=== PATIENT | male | born 1965 | race Caucasian/White ===

== ENCOUNTER 2024-05-17 20:28 | Inpatient (IN) | payer OTHER, MEDICAID, SELFPAY ==
[2024-05-17] VITALS (11 sets, daily range): BP systolic 101–140; BP diastolic 57–78; PULSE 95–108; RESP 18; TEMP 37.1; O2SAT 96–98; BMI 24.3
[2024-05-17 20:45] LABS: Add Manual Diff / Slide Review NO; Basophils Absolute Auto 0 /uL (0-100); Basophils Percent Auto 0.3 % (0-2); Eosinophils Absolute Auto 0 /uL (0-450); Eosinophils Percent Auto 0.3 % (2-4); Hematocrit 38.7 % (41-53); Hemoglobin 13.2 g/dL (13.5-17.5); Lymphocytes Absolute Auto 500 /uL (1100-4500); Lymphocytes Percent Auto 3.6 % (25-40); Mean Corpuscular Hemoglobin 29.6 PG (26-34); Mean Corpuscular Volume 87.2 fL (80-100); Monocytes Absolute Auto 400 /uL (0-900); Monocytes Percent Auto 3.3 % (3-14); Neutrophils Absolute Auto 12200 /uL (1500-7000); Neutrophils Percent Auto 92.5 % (50-75); Platelet Count 261 X10^3/uL (150-400); Red Blood Cell Count 4.44 X10^6/uL (4.5-5.9); Red Cell Distribution Width 13.3 % (11.6-14.8); White Blood Cell Count 13.2 X10^3/uL (4.5-11.0)
--- NOTE | 2024-05-17 20:46 | EKG_ITS ---
[address] [address] [address], [place] [address] Test Date: 2024-05-17 Pat Name: Myles Segovia Department: Room: Gender: Male Dermatology Nurse: BENJAMÍN : 1965 Requested By: Order Number: [id number] Reading MD: Mohsen Jenkins MD Measurements Intervals Thelma Rate: 98 P: 55 [place]: 142 QRS: 5 QRSD: 124 T: 30 QT: 442 QTc: 564 Interpretive Statements Normal sinus rhythm Right bundle branch block NO PRIOR TRACING Electronically Signed On 05-18-2024 7:53:52 PDT by Mohsen Jenkins MD
[2024-05-17 20:57] LABS: Alanine Aminotransferase 209 IU/L (<50); Albumin 3.5 g/dL (3.5-5.0); Albumin Globulin Ratio 0.8 (1.0-2.8); Alkaline Phosphatase 258 U/L (38-126); Aspartate Aminotransferase 136 IU/L (17-59); BUN Creatinine Ratio 20.8 (6-22); Bilirubin Total 1.4 mg/dL (0.2-1.3); Blood Urea Nitrogen 11 mg/dL (9-20); Calcium 8.3 mg/dL (8.4-10.2); Carbon Dioxide 28 mmol/L (22-32); Chloride 96 mmol/L (98-107); Estimated Glomerular Filt Rate > 60 mL/min (>60); Globulin 4.2 g/dL (1.7-4.1); Glucose 292 mg/dL (70-100); HEMOLYSIS 39 (0-50); Lipase 31 U/L (23-300); Potassium 4.4 mmol/L (3.4-5.1); Sodium 129 mmol/L (137-145); Total Protein 7.7 g/dL (6.3-8.2)
--- NOTE | 2024-05-17 22:32 | ED.ABDPAIN ---
HPI - Abdominal Pain General Chief Complaint: Abdominal Pain Stated Complaint: painful urination Time Seen by Provider: 05/17/24 22:32 Source: patient and RN notes reviewed Mode of arrival: EMS Limitations: no limitations History of Present Illness HPI narrative: 58-year-old male with history of hypertension, dyslipidemia, diabetes, hepatitis, patient states that he presents with complaint of dysuria. Patient describes some pelvic discomfort as well as in the penis. He states this has been going on for several weeks. Became much more painful today to try to urinate. States he was seen somewhere yesterday was given a prescription he thinks for Pyridium and an antibiotic but was not sure which antibiotics were which did not take them because he is sores his medications in a bowl and could not tell them apart. He states he may have had fevers. He has had nausea but no vomiting. Denies any flank pain currently but has had some mild flank pain on and off. States he does have discomfort in his lower belly. Patient states he has been constipated last bowel movement was several days ago. States he is passing flatus. States no discharge. No scrotal pain. States he has been referred to see someone like Urology has not appointment towards the end of the month. He states he has had a catheter once before in the past but not regularly. He does not have any known kidney problems that he is aware, he has had UTIs in the past. Denies any surgeries. Allergy to codeine. Denies tobacco, denies any alcohol use, denies any recreational drugs besides marijuana. Related Data Allergies Allergy/AdvReac Type Severity Reaction Status Date / Time codeine Allergy Verified 05/17/24 20:37 Review of Systems Review of Systems ROS Unobtainable: All systems reviewed & are unremarkable except as noted in HPI and below Patient History Social History Smoking Status: Never smoker Smoking Status: Never smoker Substance Use Type: marijuana Exam Narrative Exam Narrative: GENERAL: Alert and oriented x three, male in mild distress. HEENT: Head normocephalic, atraumatic, EOMI, pupils reactive, face symmetric, moist mucous membranes NECK: Supple, full range of motion CARDIOVASCULAR: Regular rate and rhythm without murmurs, rubs or gallops. RESPIRATORY: Breath sounds equal bilaterally, no wheezes rales or rhonchi. ABDOMEN: Soft, positive for suprapubic tenderness. Normoactive bowel sounds all 4 quadrants. No guarding or rebound, rigidity, no mass : No CVA tenderness. Male: normal external examination, no penile discharge or lesions, testicles non-tender, cremasteric reflex intact, no inguinal hernias noted. EXTREMITIES: Normal range of motion, no clubbing or edema. Neurovascularly intact NEUROLOGICAL: Cranial nerves II through XII grossly intact. Moving all extremities SKIN: Warm, dry, no petechiae, no rashes or lesions. Initial Vital Signs Initial Vital Signs: Vital Signs Pulse Rate 100 H 05/17/24 20:30 Pulse Oximetry 98 05/17/24 20:30 Course Orders Ordered: ED Orders 05/17/24 20:30 Complete Blood Count AUTO DIFF Stat Comprehensive Metabolic Panel Stat Lipase Stat 05/17/24 20:36 EKG-12 Lead Stat 05/17/24 22:58 Chlamydia Gonorrhea PCR -URINE Stat Urine Microscopic Stat 05/18/24 00:51 CT abdomen pelvis w con Stat 05/18/24 01:45 Urine Culture Stat Levofloxacin (Levaquin) 750 mg in 150 mls @ 100 mls/hr IV NOW ONE Stop: 05/18/24 03:14 Last Admin: 05/18/24 01:50 Dose: 100 mls/hr Documented By: Sodium Chloride (Normal Saline 0.9%) 1,000 mls @ 150 mls/hr IV CONT NAYELI Ondansetron HCl (Ondansetron 4 Mg/2 Ml Inj) 4 mg IV NOW PRN PRN Reason: Nausea And Vomiting Ondansetron HCl (Ondansetron 4 Mg Odt) 4 mg PO NOW PRN PRN Reason: Nausea And Vomiting Discontinued Medications Ketorolac Tromethamine (Ketorolac 30 Mg/Ml Vial) 15 mg IV NOW ONE Stop: 05/18/24 01:40 Last Admin: 05/18/24 01:49 Dose: 15 mg Documented By: Vital Signs Vital signs: Vital Signs - 8 hr 05/17/24 20:30 05/17/24 20:31 05/17/24 20:31 Temperature Pulse Rate 100 H 99 H Respiratory Rate Blood Pressure 124/76 Pulse Oximetry 98 98 Oxygen Delivery Method 05/17/24 20:37 05/17/24 21:00 05/17/24 21:00 Temperature 98.8 F Pulse Rate 96 H 95 H Respiratory Rate 18 Blood Pressure 124/76 130/72 Pulse Oximetry 98 97 Oxygen Delivery Method Room Air 05/17/24 21:30 05/17/24 21:30 05/17/24 22:00 Temperature Pulse Rate 96 H Respiratory Rate Blood Pressure 136/78 140/74 Pulse Oximetry 98 Oxygen Delivery Method 05/17/24 22:00 05/17/24 22:30 05/17/24 22:30 Temperature Pulse Rate 99 H 105 H Respiratory Rate Blood Pressure 124/78 Pulse Oximetry 98 97 Oxygen Delivery Method 05/17/24 22:41 05/17/24 23:00 05/17/24 23:12 Temperature Pulse Rate 108 H 107 H Respiratory Rate Blood Pressure 124/76 Pulse Oximetry 98 97 Oxygen Delivery Method Room Air 05/17/24 23:30 05/17/24 23:30 05/18/24 00:00 Temperature Pulse Rate 102 H 99 H Respiratory Rate Blood Pressure 101/57 L Pulse Oximetry 96 96 Oxygen Delivery Method 05/18/24 00:00 05/18/24 00:30 05/18/24 00:30 Temperature Pulse Rate 97 H Respiratory Rate Blood Pressure 106/56 L 123/69 Pulse Oximetry 94 Oxygen Delivery Method 05/18/24 01:13 05/18/24 01:14 05/18/24 01:14 Temperature Pulse Rate 89 90 Respiratory Rate Blood Pressure 116/59 L Pulse Oximetry 99 99 Oxygen Delivery Method Room Air 05/18/24 01:30 05/18/24 01:30 Temperature Pulse Rate 90 Respiratory Rate Blood Pressure 130/81 Pulse Oximetry 95 Oxygen Delivery Method Room Air MDM - Abdominal Pain Lab Data 05/17/24 20:30 05/17/24 20:30 Labs: Lab Results 05/17/24 05/17/24 Range/Units 20:30 22:58 WBC 13.2 H (4.5-11.0) X10^3/uL RBC 4.44 L (4.5-5.9) X10^6/uL Hgb 13.2 L (13.5-17.5) g/dL Hct 38.7 L (41-53) % MCV 87.2 (80-100) fL MCH 29.6 (26-34) PG MCHC 34.0 (30-36) % RDW 13.3 (11.6-14.8) % Plt Count 261 (150-400) X10^3/uL Neut % (Auto) 92.5 H (50-75) % Lymph % (Auto) 3.6 L (25-40) % [place] % (Auto) 3.3 (3-14) % Eos % (Auto) 0.3 L (2-4) % Baso % (Auto) 0.3 (0-2) % Neut # (Auto) 21568 H (1859-6508) /uL Lymph # (Auto) 500 L (9150-3741) /uL [place] # (Auto) 400 (0-900) /uL Eos # (Auto) 0 (0-450) /uL Baso # (Auto) 0 (0-100) /uL Sodium 129 L (137-145) mmol/L Potassium 4.4 (3.4-5.1) mmol/L Chloride 96 L (98-107) mmol/L Carbon Dioxide 28 (22-32) mmol/L BUN 11 (9-20) mg/dL Creatinine 0.53 L (0.66-1.25) mg/dL Estimated GFR > 60 (>60) mL/min BUN/Creatinine Ratio 20.8 (6-22) Glucose 292 H (70-100) mg/dL Calcium 8.3 L (8.4-10.2) mg/dL Total Bilirubin 1.4 H (0.2-1.3) mg/dL AST 136 H (17-59) IU/L ALT 209 H (<50) IU/L Alkaline Phosphatase 258 H (38-126) U/L Total Protein 7.7 (6.3-8.2) g/dL Albumin 3.5 (3.5-5.0) g/dL Globulin 4.2 H (1.7-4.1) g/dL Albumin/Globulin Ratio 0.8 L (1.0-2.8) Lipase 31 (23-300) U/L Urine RBC 0-1/hpf (0-5/HPF) Urine WBC 0-1/hpf (0-5/HPF) Ur Squamous Epith Cells 0-1 /hpf (0-5/HPF) Urine Bacteria None seen (None) Hyaline Casts None seen (None) Ur Culture Indicated? Cult not indicated Vol Urine Centrifuged 10ml (spun) Ur Chlamydia DNA (PCR) Not detected N gonorrhoeae DNA (PCR) Not detected Point of care testing: Urine Dip Bedside Urine Glucose 1000 mg/dl Bedside Urine Bilirubin - Negative Bedside Urine Ketone ++ 40 Urine Specific [place] 1.015 Bedside Urine Occult Blood - Negative Bedside Urine pH 7 Bedside Urine Protein +/- 15 Bedside Urine Urobilinogen - Negative Bedside Urine Nitrite - Negative Bedside Urine Leukocytes - Negative Esterase ECG Data Attestation: I personally reviewed and interpreted this ECG as follows: Prior ECG tracings: not available for review Interpretation: Sinus rhythm, right bundle-branch block, rate 88, MD 142 QRS of 124 QTC 564. No priors for comparison. MDM Narrative Medical decision making narrative: 58-year-old male presents with complaint of dysuria, constipation. Patient's labs show white count of 13 hemoglobin of 13 with platelets of 261, predominance of neutrophils. Sodium is 129 potassium 4.4 chloride 96 CO2 is 28 with a BUN of 11 creatinine 0.53, glucose of 292, LFTs are elevated at 1.4 with a AST of 136 ALT of 209 and alk-phos of 258, lipase is 31. Patient notes he does have chronically elevated LFTs. After discussion with the patient's sounds like his labs are probably baseline. Patient was having difficulty urinating had 470 on bladder scan. Attempted to give urine sample. Patient had 400 out and only 70 on repeat bladder scan. Urinalysis does not show any clear signs of infection or hematuria. Urine GC is negative. Patient states that he did have imaging at some point but he does not know exactly what or what the results were. After discussion we will obtain CT abdomen pelvis. This shows irregular fluid attenuating air in the pelvis suggesting rim enhancement 3.6 cm x 3.5 x 1.8 mild irregular cause tour of the prostate. Concerning for prostatitis with abscess. Rectosigmoid bowel wall thickening concerning for proctocolitis. Urine was negative but urine was for culture. Spoke with Dr. Esquivel, hold off on Melissa catheter unless patient is unable to urinate. We will review images and workup, we will see patient 1st thing in the morning. Does ask that we would admit to medicine with patient's history of medical issues. Patient does not appear septic at this time. Patient does have history of hepatitis, hypertension dyslipidemia asked that we shot with the hospitalist about keeping for observation. Spoke with Dr. Felix, hospitalist accepts for observation. Patient was updated, he is agreeable to stay. Discharge Plan Departure Patient Disposition: Admitted as Observation Clinical Impression: Abscess of prostate Admit Date/Time: 05/18/24 02:42 Admit Provider: Gustavo Gandhi
[2024-05-17 23:22] LABS: Urine Volume 10mL (spun)
[2024-05-17 23:23] LABS: Bacteria Urine None Seen; Culture Indicated Urine Cult Not Indicated; Hyaline Casts Urine None Seen; RBC Urine 0-1/HPF (0-5/HPF); Squamous Epithelial Cell Urine 0-1 /HPF (0-5/HPF); WBC Urine 0-1/HPF (0-5/HPF)
[2024-05-18] VITALS (24 sets, daily range): BP systolic 89–143; BP diastolic 56–95; PULSE 70–114; RESP 13–22; TEMP 36.4–37.6; O2SAT 94–100; BMI 24.3
--- NOTE | 2024-05-18 | PATH_ITS ---
[facility] Accession Number: [id number] No. of containers..01 Tissue . 01 Material submitted: . prostate - PROSTATE CHIPS . 01 Diagnosis: PROSTATE CHIPS (1 GRAM), TRANURETHRAL RESECTION: Benign prostatic hyperplasia. MRV 05/23/2024 1227 Local . 01 Electronically signed: . Maricruz Perla MD, Pathologist NPI- [id number] . 01 Gross description: . Received in formalin with two patient identifiers and prostate chips, are multiple rosado rubbery soft tissue fragments weighing 1 gram and aggregating to 3.5 x 2.5 x 0.3 cm. Filtered and submitted entirely in A1-A2. ([id number]) /MRV 05/19/2024 1613 Local . 01 Pathologist provided ICD-10: N40.0 . 01 CPT . 839175 Specimen Comment: A courtesy copy of this report has been sent to [phone] Performed at: [address] [address], [place], [place] [id number] MD Taran Carey MD Phone: [phone]
[2024-05-18 00:39] LABS: Urine N gonorrhoeae NOT DETECTED
[2024-05-18 00:47] LABS: Urine Chlamydia NOT DETECTED
--- NOTE | 2024-05-18 00:51 | DI.CT.S_ITS ---
PROCEDURE: CT ABDOMEN PELVIS W CON INDICATIONS: dysuria, suprapubic pain, no changes urine. TECHNIQUE: After the administration of intravenous contrast, axial sections acquired from the lung bases to the pubic symphysis. Coronal and sagittal reformats were performed. For radiation dose reduction, the following was used: automated exposure control, adjustment of mA and/or kV according to patient size. COMPARISON: None. FINDINGS: Image quality: Mildly degraded by patient motion artifact. Lower Chest: No significant findings. ABDOMEN: Liver: Subcentimeter hypodensities are too small to characterize by CT. Gallbladder: No radiopaque gallstones or wall thickening. Biliary ducts: No biliary dilation. Pancreas: No ductal dilation. Spleen: Size is within normal limits. Adrenal Glands: No adrenal nodules. Kidneys and Ureters: No hydronephrosis. No solid mass. No complex renal cystic lesion which requires follow up. Stomach and Bowel: No small bowel. Normal caliber appendix. Rectosigmoid bowel wall thickening. Ventral Wall: No significant ventral hernia. Abdominal Nodes: No retroperitoneal or mesenteric adenopathy by size criteria. Vessels: Aorta and inferior vena cava are normal in size. PELVIS: Pelvic Organs: Irregular fluid attenuating area in the pelvis with suggestion of rim enhancement measuring approximately 3.6 x 1.8 x 3.5 cm (84, 3/). There is mildly irregular contour of the prostate. Bladder: No bladder wall thickening, accounting for underdistention. Pelvic Nodes: No enlarged lymph nodes. Miscellaneous: No inguinal hernias are seen. Bones: No aggressive osseous abnormality. IMPRESSION: Irregular and heterogeneously enhancing prostate with rim enhancing fluid collection measuring up to 3.6 cm is concerning for prostatitis with abscess. Rectosigmoid bowel wall thickening concerning for proctocolitis. Approved by: Gabriella Horowitz M.D.,Ph.D. on 05/18/2024 at 1:40
[2024-05-18] MEDS: KETOROLAC 30 MG/ML VIAL 15 MG IV (01:49)
[2024-05-18] MEDS: levoFLOXacin 750 MG/150 ML PIGGYBACK 100 MG IV ×2 (01:50→23:33)
[2024-05-18] MEDS: HYDROMORPHONE 0.5 MG INJ IV ×4 (04:00→17:58)
[2024-05-18] MEDS: SODIUM CHLORIDE 0.9% 1,000 ML 100 ML IV (04:08)
--- NOTE | 2024-05-18 07:19 | P.HP_ITS ---
History of Present Illness History of Present Illness Date Patient Seen: 05/18/24 Time Patient Seen: 06:50 Chief complaint: painful urination Narrative: 58 y/o with PMH of anxiety, depression, GERD, HTN, DM presented with painful urination that started almost 2 weeks ago. He had a course of antibiotic and pyridium that helped only partially. Workup in the ED showing 3.5 cm prostate abscess with surrounding prostatitis and adjacent limited proctocolitis. ED consulted urology and patient admitted on iv abx and NPO. [facility] Social History Smoking Status: Never smoker alcohol intake: former Meds Home Medications and Allergies Home Medications Medication Instructions Recorded Confirmed Type albuterol sulfate 90 mcg/actuation 1 puff inhalation PRN PRN 05/18/24 05/18/24 History aerosol inhaler Shortness Of Breath Or Wheezing bupropion HCl 100 mg tablet 100 mg PO BID 05/18/24 05/18/24 History buspirone 10 mg tablet 10 mg PO BID 05/18/24 05/18/24 History gabapentin 300 mg capsule 300 mg PO BID 05/18/24 05/18/24 History insulin aspart U-100 100 unit/mL 1 sliding scale dose SUBCUT ACHS 05/18/24 05/18/24 History (3 mL) subcutaneous pen (Novolog FlexPen U-100 Insulin aspart) insulin detemir U-100 100 unit/mL 20 unit SUBCUT BID 05/18/24 05/18/24 History (3 mL) subcutaneous pen (Levemir FlexPen) lisinopril 5 mg tablet 5 mg PO DAILY 05/18/24 05/18/24 History omeprazole 40 mg capsule,delayed 40 mg PO DAILY 05/18/24 05/18/24 History release Allergies Allergy/AdvReac Type Severity Reaction Status Date / Time codeine Allergy Verified 05/17/24 20:37 Review of Systems Review of Systems Narrative: Limited historian Constitutional Comments: w/o fever apparently Cardiovascular Comments: w/o chest pain Respiratory Comments: w/o SOB Genitourinary Comments: lower abdominal pain, burning with urination Exam Vital Signs (past 8 hours): - 05/17/24 23:30 05/17/24 23:30 05/18/24 00:00 Temperature Pulse Rate 102 H 99 H Respiratory Rate Blood Pressure 101/57 L Pulse Oximetry 96 96 Oxygen Delivery Method Oxygen Flow Rate 05/18/24 00:00 05/18/24 00:30 05/18/24 00:30 Temperature Pulse Rate 97 H Respiratory Rate Blood Pressure 106/56 L 123/69 Pulse Oximetry 94 Oxygen Delivery Method Oxygen Flow Rate 05/18/24 01:13 05/18/24 01:14 05/18/24 01:14 Temperature Pulse Rate 89 90 Respiratory Rate Blood Pressure 116/59 L Pulse Oximetry 99 99 Oxygen Delivery Method Room Air Oxygen Flow Rate 05/18/24 01:30 05/18/24 01:30 05/18/24 02:00 Temperature Pulse Rate 90 Respiratory Rate Blood Pressure 130/81 124/73 Pulse Oximetry 95 Oxygen Delivery Method Room Air Oxygen Flow Rate 05/18/24 02:00 05/18/24 02:30 05/18/24 02:30 Temperature Pulse Rate 91 H 91 H Respiratory Rate Blood Pressure 114/69 Pulse Oximetry 94 96 Oxygen Delivery Method Room Air Oxygen Flow Rate 05/18/24 03:13 05/18/24 03:50 Temperature 98.3 F Pulse Rate 86 Respiratory Rate 18 Blood Pressure 115/78 Pulse Oximetry 100 Oxygen Delivery Method Room Air Oxygen Flow Rate 0 Oxygen Delivery Method Room Air Oxygen Flow Rate 0 Const Other: in no distress HENMT Other: normocephalic Neck Other: supple Resp Other: normal respiratory effort Cardio Other: RRR GI Other: w/o distension Skin Other: w/o rashes Psych Other: appropriate mood Objective ECG Impression: NSR 98, RBBB Labs 05/17/24 20:30 05/17/24 20:30 Labs: Laboratory Results - last 24 hr 05/17/24 05/17/24 20:30 22:58 WBC 13.2 H RBC 4.44 L Hgb 13.2 L Hct 38.7 L MCV 87.2 MCH 29.6 MCHC 34.0 RDW 13.3 Plt Count 261 Neut % (Auto) 92.5 H Lymph % (Auto) 3.6 L [place] % (Auto) 3.3 Eos % (Auto) 0.3 L Baso % (Auto) 0.3 Neut # (Auto) 46957 H Lymph # (Auto) 500 L [place] # (Auto) 400 Eos # (Auto) 0 Baso # (Auto) 0 Sodium 129 L Potassium 4.4 Chloride 96 L Carbon Dioxide 28 BUN 11 Creatinine 0.53 L Estimated GFR > 60 BUN/Creatinine Ratio 20.8 Glucose 292 H Calcium 8.3 L Total Bilirubin 1.4 H AST 136 H ALT 209 H Alkaline Phosphatase 258 H Total Protein 7.7 Albumin 3.5 Globulin 4.2 H Albumin/Globulin Ratio 0.8 L Lipase 31 Urine RBC 0-1/hpf Urine WBC 0-1/hpf Ur Squamous Epith Cells 0-1 /hpf Urine Bacteria None seen Hyaline Casts None seen Ur Culture Indicated? Cult not indicated Vol Urine Centrifuged 10ml (spun) Ur Chlamydia DNA (PCR) Not detected N gonorrhoeae DNA (PCR) Not detected Assessment & Plan Assessment and plan (1) Abscess of prostate: Status: Acute (2) Anxiety with depression: Status: Acute (3) GERD (gastroesophageal reflux disease): Status: Acute (4) Diabetes: Status: Acute (5) HTN (hypertension): Status: Acute Assessment & Plan narrative: Prostatitis / Abscess of Prostate - pain management - Levaquin - NPO except for meds, IVFs, urology consulting HTN - Lisinopril held DM - Lantus held, SS while NPO GERD - prn pepcid - PPI Anxiety / Depression - Bupropione, buspar DVT prophylaxis - SCDs Patient seen at [place], [place] in a real-time, audio-visual encounter with RN at bedside and provider located in OR. Time-Based Coding :: [TOTAL MINUTES] spent with patient and on the chart (including review of chart, obtaining history, exam, reviewing outside data, placing orders, documenting exam and treatment plan, and counseling patient) on [DATE].
[2024-05-18] MEDS: INSULIN LISPRO 100 UNIT/ML 3ML VIAL SUBCUT ×4 (08:12→21:50)
[2024-05-18] MEDS: INSULIN GLARGINE 100 UNIT/ML 3ML PEN 10 UNIT SUBCUT (08:13)
[2024-05-18] MEDS: PANTOPRAZOLE 40 MG VIAL 20 MG IV (08:42)
[2024-05-18 08:52] LABS: Add Manual Diff / Slide Review NO; Basophils Absolute Auto 0 /uL (0-100); Basophils Percent Auto 0.4 % (0-2); Eosinophils Absolute Auto 0 /uL (0-450); Eosinophils Percent Auto 0.4 % (2-4); Hematocrit 34.1 % (41-53); Hemoglobin 11.9 g/dL (13.5-17.5); Lymphocytes Absolute Auto 700 /uL (1100-4500); Lymphocytes Percent Auto 6.5 % (25-40); Mean Corpuscular HGB Conc 34.8 % (30-36); Mean Corpuscular Hemoglobin 30.4 PG (26-34); Mean Corpuscular Volume 87.4 fL (80-100); Monocytes Absolute Auto 800 /uL (0-900); Monocytes Percent Auto 7.2 % (3-14); Neutrophils Absolute Auto 9000 /uL (1500-7000); Neutrophils Percent Auto 85.5 % (50-75); Platelet Count 263 X10^3/uL (150-400); Red Cell Distribution Width 13.6 % (11.6-14.8); White Blood Cell Count 10.6 X10^3/uL (4.5-11.0)
[2024-05-18] MEDS: GABAPENTIN 300 MG CAPSULE PO ×2 (08:53→21:51)
[2024-05-18] MEDS: BUSPIRONE 5 MG TABLET 10 MG PO ×2 (08:53→21:50)
[2024-05-18 08:58] LABS: Blood Urea Nitrogen 14 mg/dL (9-20); Calcium 7.8 mg/dL (8.4-10.2); Carbon Dioxide 28 mmol/L (22-32); Chloride 99 mmol/L (98-107); Estimated Glomerular Filt Rate > 60 mL/min (>60); Glucose 313 mg/dL (70-100); HEMOLYSIS < 15 (0-50); Potassium 4.1 mmol/L (3.4-5.1); Sodium 131 mmol/L (137-145)
--- NOTE | 2024-05-18 09:15 | DI.RAD.S_ITS ---
PROCEDURE: RETROGRADE URETHROGRAM INDICATIONS: Pain/abscess COMPARISON: None. FINDINGS: Retrograde urethrogram demonstrates normal filling of the urethra. Normal anatomy is present. No visualized mass effect or stricture. No abnormal filling defects. IMPRESSION: Normal appearance of the urethra. Dictated by: Argenis Levy M.D. on 05/18/2024 at 16:56 Approved by: Argenis Levy M.D. on 05/18/2024 at 16:57
--- NOTE | 2024-05-18 09:59 | DI.MRI.S_ITS ---
PROCEDURE: MR PELVIC PROSTATE PROTOCOL INDICATIONS: define prostate fluid collection TECHNIQUE: Coronal HASTE, axial T1 FSE with fat saturation, 3-plane nonbreath-hold T2 FSE. After the administration of contrast, dynamic axial, delayed axial and coronal VIBE or 2-D FLASH with fat saturation through the pelvis. Diffusion weighted imaging and ADC was performed. COMPARISON: [facility], CT, CT ABDOMEN PELVIS W CON, 05/18/2024, 0:52. [facility], RF, RETROGRADE URETHROGRAM, 05/18/2024, 9:42. FINDINGS: Image quality: Diffusion weighted and dynamic contrast enhanced images are diagnostic. Prostate: 4.5 x 5.9 x 3.8 cm. Estimated volume is 52.4 cc. Multiloculated fluid collection is seen within the prostate, with diffusion restriction and rim enhancement. The dominant locule measures 3.7 x 2.2 x 3.9 cm. There is extension through the apex of the prostate (6/13). There is also extension through the right lateral margin. This impinges on the adjacent levator and puborectalis muscles and manuel prosthetic space, including the expected location of the neurovascular bundles. Suspected sequelae of BPH is seen. The urethra slightly deviated to the left. The seminal vesicles appear clear. Ill-defined hypointense heterogeneous appearance of the peripheral zone, likely sequelae of prostatitis. Genitourinary system: Mild bladder wall thickening diffusely The distal ureters are nondilated where visualized Bowel and peritoneum: No small bowel obstruction. No pathologic ascites Wall thickening of the rectum is also partially visualized. Nodes and vessels: Mildly enlarged pelvic lymph nodes are seen, for example the left external iliac measuring 1.2 cm. Soft tissues: No inguinal hernias. Bones: No suspicious enhancement IMPRESSION: Rim enhancing multiloculated fluid collection within the prostate, extending outside the capsule in multiple locations as described above. This is probably an abscess. Differential includes underlying neoplasm, including mucinous subtypes. Consider follow-up imaging following treatment and possible sampling. Mild diffuse bladder wall thickening, correlate urinalysis. Striated appearance of the peripheral zone of the prostate, probably sequelae of prostatitis. Rectal wall thickening also seen, consider age-appropriate colonoscopy correlation. This could be proctitis. Mildly enlarged pelvic lymph nodes, possibly reactive, attention on follow-up. Dictated by: Adonis Chowdhury M.D. on 05/18/2024 at 11:51 Approved by: Adonis Chowdhury M.D. on 05/18/2024 at 11:58
[2024-05-18] MEDS: buPROPion 100 MG TABLET PO ×2 (11:40→21:50)
--- NOTE | 2024-05-18 12:44 | PM.CN ---
History of Present Illness Consult details Date Patient Seen: 05/18/24 Time Patient Seen: 08:50 Chief complaint: painful urination/prostate fluid collection Reason for consult: Painful urination question prostate abscess Requesting provider: Melina Mullen Narrative: This 58-year-old male presented to the emergency department last night with complaint of very painful urination. Through workup he was found to have a prostate fluid collection which could be an abscess. Patient had a white count of 13 was afebrile reports that this is been going on for weeks. He appeared to empty his bladder completely, did not appear toxic or septic. His urine showed no sign of infection. He did complain of some rectal pain and perineal pain. He reported that he may have been seen in the walk-in Clinic and [place] he has a poor historian and has used methamphetamine in the past he reports that he last used perhaps 5-7 days ago. He denies painful ejaculation. Because the prostate fluid collection and clinical picture seems somewhat incongruent and the fluid collection poorly defined further imaging was obtained via retrograde urethrogram which showed no significant outlined irregularity to the urethra. It was perhaps somewhat slightly deviated talking to Radiology prostate MRI was recommended this was done in appears to show a prostate abscess some leftward deviation of the urethra perhaps some erosion of the prostate at the apex and right lateral margin. And the patient will need to be taken to the operating room urgently for Transurethral unroofing of prostate abscess. Patient reports he has had nothing like this before. But again he has a poor historian. He denies history of sexually transmitted disease. Patient has received Levaquin. His white count has decreased from 13-10. He is a diabetic and this may be playing a role in a less than vigorous physiologic response. Culture from his urine is pending but again it appeared rather unremarkable. The procedure, risks, alternatives were discussed with the patient questions were answered and he wishes to proceed. The risks to include but not limited to bleeding, infection, injury to surrounding structures, urinary incontinence, failure to adequately treat, need for Melissa catheter, need to stop completely methamphetamine use, need for future procedures, unforeseen and unpredictable consequences in sequelae. Urine culture will be taken at the time of procedure. Patient is afebrile shows no signs of sepsis and again it has been able to empty his bladder completely. Meds Home Medications and Allergies Home Medications Medication Instructions Recorded Confirmed Type albuterol sulfate 90 mcg/actuation 1 puff inhalation PRN PRN 05/18/24 05/18/24 History aerosol inhaler Shortness Of Breath Or Wheezing bupropion HCl 100 mg tablet 100 mg PO BID 05/18/24 05/18/24 History buspirone 10 mg tablet 10 mg PO BID 05/18/24 05/18/24 History cetirizine 10 mg tablet 10 mg PO DAILY 05/18/24 05/18/24 History gabapentin 300 mg capsule 300 mg PO BID 05/18/24 05/18/24 History insulin aspart U-100 100 unit/mL 1 sliding scale dose SUBCUT ACHS 05/18/24 05/18/24 History (3 mL) subcutaneous pen (Novolog FlexPen U-100 Insulin aspart) insulin detemir U-100 100 unit/mL 20 unit SUBCUT BID 05/18/24 05/18/24 History (3 mL) subcutaneous pen (Levemir FlexPen) lisinopril 5 mg tablet 5 mg PO DAILY 05/18/24 05/18/24 History omeprazole 40 mg capsule,delayed 40 mg PO DAILY 05/18/24 05/18/24 History release phenazopyridine 100 mg tablet 100 mg PO 3XD 05/18/24 History Allergies Allergy/AdvReac Type Severity Reaction Status Date / Time codeine Allergy Verified 05/17/24 20:37 Review of Systems Review of Systems ROS: Yes All systems reviewed with the patient and are negative except as otherwise documented (And problem list) Exam Vital Signs (past 8 hours): - 05/18/24 08:00 Temperature 97.7 F Pulse Rate 85 Respiratory Rate 16 Blood Pressure 104/66 Pulse Oximetry 97 Oxygen Flow Rate 0 Oxygen Delivery Method Room Air Oxygen Flow Rate 0 Narrative Exam Narrative: General: This is an awake, alert, oriented, uncomfortable appearing somewhat unkempt male who has poor dentition lying in his hospital bed. Lungs: Clear coarse breath sounds Cardiovascular exam: Regular rate and rhythm without murmur Abdominal exam: Soft, nontender Genitourinary exam normal male, tender perineum Rectal exam: Contraindicated so not done neurologic exam: Grossly intact Objective Labs 05/18/24 08:19 05/18/24 08:19 Labs: Laboratory Results - last 24 hr 05/17/24 05/17/24 05/18/24 20:30 22:58 08:19 WBC 13.2 H 10.6 RBC 4.44 L 3.90 L Hgb 13.2 L 11.9 L Hct 38.7 L 34.1 L MCV 87.2 87.4 MCH 29.6 30.4 MCHC 34.0 34.8 RDW 13.3 13.6 Plt Count 261 263 Neut % (Auto) 92.5 H 85.5 H Lymph % (Auto) 3.6 L 6.5 L [place] % (Auto) 3.3 7.2 Eos % (Auto) 0.3 L 0.4 L Baso % (Auto) 0.3 0.4 Neut # (Auto) 23958 H 9000 H Lymph # (Auto) 500 L 700 L [place] # (Auto) 400 800 Eos # (Auto) 0 0 Baso # (Auto) 0 0 Sodium 129 L 131 L Potassium 4.4 4.1 Chloride 96 L 99 Carbon Dioxide 28 28 BUN 11 14 Creatinine 0.53 L 0.61 L Estimated GFR > 60 > 60 BUN/Creatinine Ratio 20.8 23.0 H Glucose 292 H 313 H Calcium 8.3 L 7.8 L Total Bilirubin 1.4 H AST 136 H ALT 209 H Alkaline Phosphatase 258 H Total Protein 7.7 Albumin 3.5 Globulin 4.2 H Albumin/Globulin Ratio 0.8 L Lipase 31 Urine RBC 0-1/hpf Urine WBC 0-1/hpf Ur Squamous Epith Cells 0-1 /hpf Urine Bacteria None seen Hyaline Casts None seen Ur Culture Indicated? Cult not indicated Vol Urine Centrifuged 10ml (spun) Ur Chlamydia DNA (PCR) Not detected N gonorrhoeae DNA (PCR) Not detected [facility] Medical History (Updated 05/18/24 @ 12:52 by Benja Esquivel MD) Hepatitis C Perineal pain in male Methamphetamine use Dysuria Tobacco & Substance Use Smoking Status: Never smoker alcohol intake: former Assessment & Plan Assessment and plan (1) Abscess of prostate: Status: Acute (2) Methamphetamine use: Status: Acute (3) Perineal pain in male: Status: Acute (4) Hepatitis C: Qualifiers: Viral hepatitis chronicity: unspecified Hepatic coma status: without hepatic coma Qualified Code(s): B19.20 - Unspecified viral hepatitis C without hepatic coma Status: Acute Plan Assessment and plan: Acute abscess of prostate plan antibiotics, unroofing in Transurethral fashion of prostatic abscess. Patient has been NPO and will be taken to the operating room. Time-Based Coding :: 180 minutes today seeing the patient coordinating care observing x-rays obtaining history planning for to go to the OR counseling of the patient. [TOTAL MINUTES] spent with patient and on the chart (including review of chart, obtaining history, exam, reviewing outside data, placing orders, documenting exam and treatment plan, and counseling patient) on [DATE].
--- NOTE | 2024-05-18 12:55 | PM.PREOP ---
Pre-operative Note COVID-19 COVID-19 status: Not tested Interval Note History & Physical reviewed/Exam performed by Physician: Yes Changes to H&P: No
--- NOTE | 2024-05-18 13:18 | P.HP_ITS ---
History of Present Illness History of Present Illness Date Patient Seen: 05/18/24 Time Patient Seen: 10:00 Chief complaint: painful urination/prostate fluid collection Narrative: Adapted from overnight provider, 58 y/o with PMH of reportedly untreated hep C, anxiety, depression, methamphetamine use, GERD, HTN, DM presented with painful urination that started almost 2 weeks ago. He had a course of antibiotic and pyridium that helped only partially. Workup in the ED showing 3.5 cm prostate abscess with surrounding prostatitis and adjacent limited proctocolitis. Discussed with urology this morning extensively, ordered for further evaluation with MRI and urethrogram. Urology plans on taking patient to the OR later today after the above studies were completed. [facility] Medical History Hepatitis C Perineal pain in male Methamphetamine use Dysuria Social History Smoking Status: Never smoker alcohol intake: former Meds Home Medications and Allergies Home Medications Medication Instructions Recorded Confirmed Type albuterol sulfate 90 mcg/actuation 1 puff inhalation PRN PRN 05/18/24 05/18/24 History aerosol inhaler Shortness Of Breath Or Wheezing bupropion HCl 100 mg tablet 100 mg PO BID 05/18/24 05/18/24 History buspirone 10 mg tablet 10 mg PO BID 05/18/24 05/18/24 History cetirizine 10 mg tablet 10 mg PO DAILY 05/18/24 05/18/24 History gabapentin 300 mg capsule 300 mg PO BID 05/18/24 05/18/24 History insulin aspart U-100 100 unit/mL 1 sliding scale dose SUBCUT ACHS 05/18/24 05/18/24 History (3 mL) subcutaneous pen (Novolog FlexPen U-100 Insulin aspart) insulin detemir U-100 100 unit/mL 20 unit SUBCUT BID 05/18/24 05/18/24 History (3 mL) subcutaneous pen (Levemir FlexPen) lisinopril 5 mg tablet 5 mg PO DAILY 05/18/24 05/18/24 History omeprazole 40 mg capsule,delayed 40 mg PO DAILY 05/18/24 05/18/24 History release phenazopyridine 100 mg tablet 100 mg PO 3XD 05/18/24 History Allergies Allergy/AdvReac Type Severity Reaction Status Date / Time codeine Allergy Verified 05/17/24 20:37 Review of Systems Review of Systems Narrative: All other systems reviewed with the patient and are negative unless otherwise stated. Exam Vital Signs (past 8 hours): - 05/18/24 08:00 Temperature 97.7 F Pulse Rate 85 Respiratory Rate 16 Blood Pressure 104/66 Pulse Oximetry 97 Oxygen Flow Rate 0 Oxygen Delivery Method Room Air Oxygen Flow Rate 0 Narrative Exam Narrative: General:? Patient is well developed and well nourished, appears mildly acutely ill, and uncomfortable HEENT:? Normocephalic, atraumatic, extraocular muscles intact, oral pharynx is clear and mucous membranes are moist. Neck: supple and symmetric, trachea is midline, no cervical adenopathy. Chest:? Normal AP diameter and contour without kyphoscoliosis, no tachypnea, equal chest rise bilaterally. Lungs:? CTA b/l no wheezing rhonchi or rales. Cardio:?RRR no m/r/g. Abdomen: S NT ND. Musculoskeletal:? Muscle strength and tone are equal within normal limits, no deformity. Extremities: No edema or joint effusions. No cyanosis or clubbing. Neuro:? Alert and orientated x3,? sensation to touch intact in all extremities, no gross deficits noted of cranial nerves. Psych:? Patient has a well-kept appearance, appropriate affect, mental status attitude thought context and judgment are appropriate for age. Objective Labs 05/18/24 08:19 05/18/24 08:19 Labs: Laboratory Results - last 24 hr 05/17/24 05/17/24 05/18/24 20:30 22:58 08:19 WBC 13.2 H 10.6 RBC 4.44 L 3.90 L Hgb 13.2 L 11.9 L Hct 38.7 L 34.1 L MCV 87.2 87.4 MCH 29.6 30.4 MCHC 34.0 34.8 RDW 13.3 13.6 Plt Count 261 263 Neut % (Auto) 92.5 H 85.5 H Lymph % (Auto) 3.6 L 6.5 L [place] % (Auto) 3.3 7.2 Eos % (Auto) 0.3 L 0.4 L Baso % (Auto) 0.3 0.4 Neut # (Auto) 87293 H 9000 H Lymph # (Auto) 500 L 700 L [place] # (Auto) 400 800 Eos # (Auto) 0 0 Baso # (Auto) 0 0 Sodium 129 L 131 L Potassium 4.4 4.1 Chloride 96 L 99 Carbon Dioxide 28 28 BUN 11 14 Creatinine 0.53 L 0.61 L Estimated GFR > 60 > 60 BUN/Creatinine Ratio 20.8 23.0 H Glucose 292 H 313 H Calcium 8.3 L 7.8 L Total Bilirubin 1.4 H AST 136 H ALT 209 H Alkaline Phosphatase 258 H Total Protein 7.7 Albumin 3.5 Globulin 4.2 H Albumin/Globulin Ratio 0.8 L Lipase 31 Urine RBC 0-1/hpf Urine WBC 0-1/hpf Ur Squamous Epith Cells 0-1 /hpf Urine Bacteria None seen Hyaline Casts None seen Ur Culture Indicated? Cult not indicated Vol Urine Centrifuged 10ml (spun) Ur Chlamydia DNA (PCR) Not detected N gonorrhoeae DNA (PCR) Not detected Assessment & Plan Assessment & Plan narrative: (1) Abscess of prostate, sepsis ruled out. - continue levofloxacin - urology to perform drainage of abscess today - follow up blood, urine, and operative cultures. - SOFA score of 1, sepsis ruled out - Urine G/C negative. (2) Anxiety with depression: - continue home wellbutrin (3) GERD (gastroesophageal reflux disease): - replace home omeprazole with pantoprazole (4) Diabetes: - while NPO continue long acting insulin at 1/2 home dose or 10 U BID, increase when diet ordered. - low dose sliding scale ordered (5) HTN (hypertension): - hold home lisinopril prior to OR, and in setting of possible sepsis. (6) Presume Active Hep C. - will send hepatitis serologies, has known hep C, will attempt to get PCP records, patient was told he was not indicated for treatment previously. - hep C has reflex quant. Follow up results. - trend AST/ALT and bilirubin. Code: Full, surrogate is patient's son DVT: SCDs I have utilized all available immediate resources to obtain, update, or review the patient's current medications. Dispo: patient admitted under inpatient status. Likely discharge home in the next 1-2 days depending on post-operative course. Additional history obtained via discussions with the Urologist and overnight provider. These discussions contributed to the creation of the above assessment and plan. I have reviewed patient's presenting documentation, labs, and imaging personally. Time-Based Coding :: [TOTAL MINUTES] spent with patient and on the chart (including review of chart, obtaining history, exam, reviewing outside data, placing orders, documenting exam and treatment plan, and counseling patient) on [DATE].
[2024-05-18] MEDS: GENTAMICIN 370 MG in SODIUM CHLORIDE 0.9% 100 ML 109.25 MG IV (13:50)
[2024-05-18] MEDS: AMPICILLIN/SULBACTAM 3 GM 3 GM in SODIUM CHLORIDE 0.9% 100 ML IV (13:50)
--- NOTE | 2024-05-18 14:01 | SUR.OPER ---
Lithotomy on padded OR bed, head on pillow, arms secured on padded arm boards at <90 degrees abduction. Legs secured in padded yellow fins stirrups.
--- NOTE | 2024-05-18 14:35 | PM.OP.1 ---
Procedure & Clinicians Procedure: Transurethral unroofing of prostate abscess/Transurethral resection of prostate Same procedure as scheduled: Yes Indications: This 58-year-old male presented to the emergency department with complaint of profound dysuria of several weeks duration. Was found to have a prostate fluid collection which with further imaging was defined as a prostate abscess. He presents at this time being a diabetic covered by antibiotics for the above procedure. Surgeon: Benja Esquivel Click Yes if Unassisted: Yes Anesthesia Type: General Operative Notes Findings: Urethral meatus was somewhat narrowed and required dilation to 30 Citizen [place] to accept the continuous-flow resectoscope. The urethra was otherwise normal along its length the sphincter was well coapted. There was bilobar obstructive character to the prostate more prominent on the right with inflammatory changes. Within the bladder the ureteral orifices were normal position with clear efflux the bladder mucosa was normal without tumor or other abnormality. As the right side of the prostate was resected the abscess cavity was encountered and there was a vigorous efflux of whitish yellow purulent material which was thick. The prostate tissue otherwise was unremarkable the purulence and efflux was cultured both aerobic anaerobic and bladder wash was sent for culture also. At the end of the procedure hemostasis appeared to be good and the prostatic fossa was widely patent. The cavity had been marsupialized. Closure Type: not applicable Specimen(s): other (1. Anaerobic and aerobic culture2. Bladder wash for culture 3. Prostate chips ) Prosthetic devices, grafts, tissues, transplants, or devices: None Estimated Blood Loss (mL): 5 Blood products transfused: none Procedure in detail: Procedure in detail after informed consent was obtained, the patient was identified and brought to the operating room where his placed supine patient on the table. Once there anesthesia was induced and maintained. Ensuring an adequate level of anesthesia the patient was transitioned to the lithotomy position where he was prepped, draped and prepared for Transurethral procedure. Ensuring an adequate level of anesthesia, after prepping and draping, after administration of IV antibiotics, after time-out an attempt was made to pass the resectoscope was realized that the meatus was small and would not extract the scope in the meatus was then dilated with Gwyn sounds gently from 18-30 Citizen [place]. The scope was then easily accepted. Passed through the urethra prostate and into the bladder where cystoscopy was performed. The resecting loop was then inserted and then on the right side starting at approximately the 7 o'clock position resecting from the bladder neck toward the veru the prostate was sequentially resected down in depth and from the 7 o'clock position up toward the 11 o'clock position. As this was carried down sequentially the prostate abscess cavity was entered and a whitish yellow purulent presented in vigorous efflux. The abscess cavity was then ?marsupialized? resecting prostate tissue to leave it widely patent. Redundant prostate tissue was also resected down to give a good channel. This was from the bladder neck to the verumontanum. The purulent material was then evacuated as this progressed purulent material was evacuated into a specimen cup and cultured. The bladder wash effluent was also gathered for culture. The chips were evacuated. And with a decrease in pressure further purulence was noted. And again small amount more of the prostate tissue on the right side was resected again opening the cavity. Hemostasis was achieved with electrocautery. At this point with an over glove on a gentle prostate massage especially on the right was performed and further purulent material was evacuated. Again this was washed out the bladder was washed several times with saline all fragments and chips were noted. There was a pocket of prostate stones owhich were evacuated as this resection progressed. Being satisfied that an adequate channel was noted and that the abscess cavity had been marsupialized the bladder was once again washed out drained the scope was removed. Specimens were forwarded to pathology the patient tolerated the procedure well was awakened transferred to the postanesthesia care unit for recovery once recovered he will be transferred to the park to be returned to the care of the hospitalist. Again the patient was covered with gentamicin and Unasyn having previously received levofloxacin. Complications: none Post-operative Condition: stable Disposition: PACU Plan for aftercare: Patient to be transferred back to the floor and care of the hospitalist after he is recovered. The patient would need to follow up in my office approximately 14 days after discharge from the hospital.
--- NOTE | 2024-05-18 15:08 | CM.DANOTE ---
Initial DCP Assessment Note Pt is a 58 yo male, resident of [place], arrives with painful urination for several weeks, found to have a prostate abscess. Patient taken to the OR today for urology procedure by Dr Esquivel. PCP: Unknown Payer: Coordinated care/[facility] Brief visit today at patient's bedside, patient appeared distressed this visit and was soon to be taken off the floor for procedure. Patient lives alone, reports he needs someone to help him with medications, cooking and cleaning. CM team will plan to follow clinical course closely. Need to complete full discharge plan assessment with patient at bedside over then ext 24 hrs. Attending is hospitalist, urology consulting. LOUIS Mazariegos Discharge Planning/Care Management CM Discharge Assessment Start: 05/18/24 15:06 Freq: Status: Active Protocol: Document 05/18/24 15:06 MARCOS (Rec: 05/18/24 15:07 [email or web address] [id number]) Discharge Planning Assessment Assigned Preparation Plant Repairer LOUIS Garay DPOA/Assigned Designee Name mario Lai Contact Information [phone] Advance Directives? No History Provided By Patient,Medical Record Prior Living Arrangements Apartment/Condo
[2024-05-18] MEDS: KETOROLAC 30 MG/ML VIAL IV (16:22)
[2024-05-18] MEDS: SODIUM CHLORIDE 0.9% 1,000 ML 1000 ML IV (18:07)
--- NOTE | 2024-05-18 18:18 | PC.NURSE ---
Day shift: Pt returned from OR this afternoon. Somnolent, rating pain 5/10 but promptly falling asleep. 2 hours later, this RN noted increased HR, decreased BP, and increased temp. RR 20. Notified MD Bansal of concern for sepsis. stated that patient already on antibiotics and known infection. He stated no lactate needed at this time. 1L bolus given, then will start IV fluids at 150mL/hr. Pt able to void after surgery, though very painful. IV dilaudid given. Will continue to closely monitor.
[2024-05-18] MEDS: OXYCODONE IR 5 MG TABLET PO (18:43)
[2024-05-18] MEDS: ACETAMINOPHEN 325 MG TABLET 975 MG PO (18:44)
[2024-05-18] MEDS: SODIUM CHLORIDE 0.9% 1,000 ML 150 ML IV (19:05)
[2024-05-18] MEDS: INSULIN GLARGINE 100 UNIT/ML 3ML PEN 20 UNIT SUBCUT (21:50)
[2024-05-19] MEDS: HYDROMORPHONE 0.5 MG INJ IV ×3 (05:35→22:55)
[2024-05-19] MEDS: SODIUM CHLORIDE 0.9% 1,000 ML 150 ML IV ×2 (05:40→14:25)
[2024-05-19 06:21] LABS: Add Manual Diff / Slide Review NO; Basophils Absolute Auto 0 /uL (0-100); Basophils Percent Auto 0.2 % (0-2); Eosinophils Absolute Auto 0 /uL (0-450); Eosinophils Percent Auto 0.1 % (2-4); Hematocrit 31.9 % (41-53); Hemoglobin 10.8 g/dL (13.5-17.5); Lymphocytes Absolute Auto 500 /uL (1100-4500); Mean Corpuscular Hemoglobin 29.8 PG (26-34); Mean Corpuscular Volume 87.5 fL (80-100); Monocytes Absolute Auto 700 /uL (0-900); Monocytes Percent Auto 4.3 % (3-14); Neutrophils Absolute Auto 14500 /uL (1500-7000); Neutrophils Percent Auto 92.4 % (50-75); Platelet Count 184 X10^3/uL (150-400); Red Blood Cell Count 3.64 X10^6/uL (4.5-5.9); Red Cell Distribution Width 13.5 % (11.6-14.8); White Blood Cell Count 15.7 X10^3/uL (4.5-11.0)
[2024-05-19 06:38] LABS: Alanine Aminotransferase 151 IU/L (<50); Albumin 2.5 g/dL (3.5-5.0); Albumin Globulin Ratio 0.7 (1.0-2.8); Alkaline Phosphatase 209 U/L (38-126); Aspartate Aminotransferase 123 IU/L (17-59); BUN Creatinine Ratio 30.6 (6-22); Bilirubin Total 1.3 mg/dL (0.2-1.3); Blood Urea Nitrogen 19 mg/dL (9-20); Calcium 7.3 mg/dL (8.4-10.2); Carbon Dioxide 25 mmol/L (22-32); Chloride 103 mmol/L (98-107); Estimated Glomerular Filt Rate > 60 mL/min (>60); Globulin 3.4 g/dL (1.7-4.1); Glucose 273 mg/dL (70-100); HEMOLYSIS < 15 (0-50); Magnesium 1.7 mg/dL (1.6-2.3); Potassium 4.1 mmol/L (3.4-5.1); Sodium 132 mmol/L (137-145); Total Protein 5.9 g/dL (6.3-8.2)
[2024-05-19 07:20] LABS: Hepatitis B Surface Antigen NEGATIVE s/c (NEGATIVE)
[2024-05-19 07:56] LABS: Hep C Virus Ab w/Reflex Quant REACTIVE s/c (NEGATIVE)
[2024-05-19] MEDS: INSULIN LISPRO 100 UNIT/ML 3ML VIAL SUBCUT ×4 (08:40→21:20)
[2024-05-19] MEDS: buPROPion 100 MG TABLET PO ×2 (08:41→21:10)
[2024-05-19] MEDS: GABAPENTIN 300 MG CAPSULE PO ×2 (08:41→21:10)
[2024-05-19] MEDS: PANTOPRAZOLE 40 MG VIAL 20 MG IV (08:41)
[2024-05-19] MEDS: OXYCODONE IR 5 MG TABLET PO (08:42)
[2024-05-19] MEDS: BUSPIRONE 5 MG TABLET 10 MG PO ×2 (08:42→21:09)
[2024-05-19] MEDS: INSULIN GLARGINE 100 UNIT/ML 3ML PEN 20 UNIT SUBCUT ×2 (08:42→21:10)
[2024-05-19 09:00] VITALS: BP 104/64; PULSE 78; RESP 16; TEMP 36.6; O2SAT 98
[2024-05-19] MEDS: OXYCODONE IR 10 MG TABLET PO (09:48)
[2024-05-19] MEDS: polyethylene glycoL 3350 17 GM POWD.PACK PO (09:48)
[2024-05-19] MEDS: MAGNESIUM CHLORIDE 64 MG TABLET 128 MG PO (10:27)
--- NOTE | 2024-05-19 11:10 | DIET.CONS ---
Dietary Consultation Note Admission Date: 05/18/2024 13:20 Assessment: 58 y M admitted for prostate abscess and taken to OR yesterday. PMH of diabetes, hep C, methamphetamine use. Nutrition consulted for diabetes, nutrition screened for low MNA. Met with pt at bedside who reports he is forgetful and that he doesn't eat like he should to manage diabetes. Last 3 months has had a decrease in intake, reports having no income and previously relying on SNAP and food pantry, but forgot to fill out SNAP benefits form. Decreased ability to cook d/t forgetting food on stove/oven and it burning. Has noticed weight loss, loss of muscle mass in arms and legs. Does not have teeth, soft foods only. Usually has 4 meals/day, has been having 2 meals in last months. Diet recall: chicken salad sandwich mashed potatoes NFPE: Muscle mass loss: Moderate loss temporalis, mild loss clavicle region, interosseous Subcutaneous fat loss: mild loss buccal, orbital, triceps Ht: 175.26 cm Wt: 74.843 kg BMI: 24.3 UBW: 79.55 kg per pt report within last 3 month (-6% loss in 3 months, non-severe) Last BM: 05/15/24 (05/18/24 13:13) MNA: 7 Sree Score: 21 Diet: 05/18/24 Dinner Carbohydrate Consistent Diet Diet Modifications: Carbohydrate level: Large (4 CHO) Reflex DM orders: No Food Texture: Level 7 - Regular Liquid Consistency: Level 0 - Thin Nutrition Percent Meal Consumed 25% 05/18/24 18:00 Labs: RBC 3.64 X10^6/uL (4.5-5.9) L 05/19/24 05:16 Hgb 10.8 g/dL (13.5-17.5) L 05/19/24 05:16 Hct 31.9 % (41-53) L 05/19/24 05:16 Creatinine 0.62 mg/dL (0.66-1.25) L 05/19/24 05:16 Nutrition Diagnosis: Moderate acute Protein Calorie Malnutrition r/t social/environment circumstances and increased nutrient needs as evidenced by decreased access to food w/o renewal of SNAP benefits, hepatitis C, hx of methamphetamine use, mild to moderate muscle loss (temporalis, deltoid, pectoralis, trapezius, interosseous), mild subcutaneous fat loss (buccal, orbital, tricep), <75% of estimated energy needs for 3 months per diet recall. Interventions: -Ensure max bid -Educ of nutrition w/ diabetes -Coordination of care w/ STILL OPERATOR HELPER EER: [id number] kcals/day (25-30 kcals/kg per BMI) 90 g protein (1.25 g/kg per PCM) Monitoring/Evaluations: po intakes, ons tolerance Electronically Signed by: Trina Rebollar 05/19/24 11:10 Clinical Dietitian [address] [id number]
[2024-05-19] MEDS: PHENAZOPYRIDINE 100 MG TABLET 200 MG PO ×3 (13:01→21:10)
--- NOTE | 2024-05-19 15:39 | P.PN_ITS ---
Subjective Subjective Interval history: 58 M admitted with prostate abscess, s/p surgery with urology. He is afraid to urinate still due to pain. Pain remains uncontrolled. It does feel better sitting down. No nausea, vomiting, fever, or chills. BP slightly improved but soft and remains on IV fluids. Exam Vital Signs (past 8 hours): - 05/19/24 09:00 Temperature 97.8 F Pulse Rate 78 Respiratory Rate 16 Blood Pressure 104/64 Pulse Oximetry 98 Oxygen Delivery Method Room Air Oxygen Flow Rate 0 Narrative Exam Narrative: General:? Patient is well developed and well nourished, appears mildly acutely ill, and uncomfortable HEENT:? Normocephalic, atraumatic, extraocular muscles intact, oral pharynx is clear and mucous membranes are moist. Neck: supple and symmetric, trachea is midline, no cervical adenopathy. Chest:? Normal AP diameter and contour without kyphoscoliosis, no tachypnea, equal chest rise bilaterally. Lungs:? CTA b/l no wheezing rhonchi or rales. Cardio:?RRR no m/r/g. Abdomen: S NT ND. Musculoskeletal:? Muscle strength and tone are equal within normal limits, no deformity. Extremities: No edema or joint effusions. No cyanosis or clubbing. Neuro:? Alert and orientated x3,? sensation to touch intact in all extremities, no gross deficits noted of cranial nerves. Psych:? Patient has a well-kept appearance, appropriate affect, mental status attitude thought context and judgment are appropriate for age. Objective Labs 05/19/24 05:16 05/19/24 05:16 Labs: Laboratory Results - last 24 hr 05/19/24 05:16 WBC 15.7 H RBC 3.64 L Hgb 10.8 L Hct 31.9 L MCV 87.5 MCH 29.8 MCHC 34.0 RDW 13.5 Plt Count 184 Neut % (Auto) 92.4 H Lymph % (Auto) 3.0 L [place] % (Auto) 4.3 Eos % (Auto) 0.1 L Baso % (Auto) 0.2 Neut # (Auto) 33664 H Lymph # (Auto) 500 L [place] # (Auto) 700 Eos # (Auto) 0 Baso # (Auto) 0 Sodium 132 L Potassium 4.1 Chloride 103 Carbon Dioxide 25 BUN 19 Creatinine 0.62 L Estimated GFR > 60 BUN/Creatinine Ratio 30.6 H Glucose 273 H Calcium 7.3 L Magnesium 1.7 Total Bilirubin 1.3 AST 123 H ALT 151 H Alkaline Phosphatase 209 H Total Protein 5.9 L Albumin 2.5 L Globulin 3.4 Albumin/Globulin Ratio 0.7 L Hep Bs Antigen Negative Hepatitis C Antibody Reactive H [facility] Medical History Hepatitis C Perineal pain in male Methamphetamine use Dysuria Social History Smoking Status: Never smoker alcohol intake: former Assessment & Plan Assessment & Plan narrative: (1) Abscess of prostate, sepsis now ruled in - continue levofloxacin - s/p drainage of abscess on 05/18/24 - follow up blood, urine, and operative cultures. - Initial SOFA score of 1. SOFA score of 2 after development of hypotension post-operatively. Hypotension improved with IV fluids. - Urine G/C negative. - added pyridium for dysuria, changed oxycodone to dilaudid PO in attempts for more adequate pain control. IV dilaudid he states does relieve symptoms more. (2) Anxiety with depression: - continue home wellbutrin (3) GERD (gastroesophageal reflux disease): - replace home omeprazole with pantoprazole (4) Diabetes: - while NPO continue long acting insulin at 1/2 home dose or 10 U BID, increase when diet ordered. - low dose sliding scale ordered (5) HTN (hypertension): - hold home lisinopril prior to OR, and in setting of possible sepsis. (6) Presume Active Hep C. - will send hepatitis serologies, has known hep C, will attempt to get PCP records, patient was told he was not indicated for treatment previously. - hep C has reflex quant. now pending Follow up results. - trend AST/ALT and bilirubin. Code: Full, surrogate is patient's son DVT: SCDs I have utilized all available immediate resources to obtain, update, or review the patient's current medications. Dispo: patient admitted under inpatient status. Likely discharge home in the next 1-2 days depending on post-operative course. Additional history obtained via discussions with the urologist. These discussions contributed to the creation of the above assessment and plan. I have reviewed patient's presenting documentation, labs, and imaging personally. Time-Based Coding :: [TOTAL MINUTES] spent with patient and on the chart (including review of chart, obtaining history, exam, reviewing outside data, placing orders, documenting exam and treatment plan, and counseling patient) on [DATE].
[2024-05-19 17:05] VITALS: BP 113/74; PULSE 72; RESP 16; TEMP 36.7; O2SAT 98
[2024-05-19 20:00] VITALS: BP 110/69; PULSE 77; RESP 20; TEMP 36.8; O2SAT 97
[2024-05-19] MEDS: levoFLOXacin 750 MG/150 ML PIGGYBACK 100 MG IV (22:54)
[2024-05-20 03:30] VITALS: BP 114/65; PULSE 74; RESP 20; TEMP 37.1; O2SAT 98
[2024-05-20 05:17] LABS: Hepatitis B Core Antibody Negative (Negative)
[2024-05-20 06:01] LABS: Add Manual Diff / Slide Review NO; Basophils Absolute Auto 0 /uL (0-100); Basophils Percent Auto 0.3 % (0-2); Eosinophils Absolute Auto 100 /uL (0-450); Eosinophils Percent Auto 0.7 % (2-4); Hematocrit 31.2 % (41-53); Hemoglobin 10.8 g/dL (13.5-17.5); Lymphocytes Absolute Auto 800 /uL (1100-4500); Lymphocytes Percent Auto 5.9 % (25-40); Mean Corpuscular HGB Conc 34.5 % (30-36); Mean Corpuscular Hemoglobin 30.3 PG (26-34); Mean Corpuscular Volume 87.8 fL (80-100); Monocytes Absolute Auto 800 /uL (0-900); Monocytes Percent Auto 5.6 % (3-14); Neutrophils Absolute Auto 11800 /uL (1500-7000); Neutrophils Percent Auto 87.5 % (50-75); Platelet Count 179 X10^3/uL (150-400); Red Blood Cell Count 3.55 X10^6/uL (4.5-5.9); Red Cell Distribution Width 13.7 % (11.6-14.8); White Blood Cell Count 13.5 X10^3/uL (4.5-11.0)
[2024-05-20 06:11] LABS: Alanine Aminotransferase 158 IU/L (<50); Albumin 2.4 g/dL (3.5-5.0); Albumin Globulin Ratio 0.7 (1.0-2.8); Alkaline Phosphatase 199 U/L (38-126); Aspartate Aminotransferase 132 IU/L (17-59); Bilirubin Total 0.8 mg/dL (0.2-1.3); Blood Urea Nitrogen 16 mg/dL (9-20); Calcium 7.5 mg/dL (8.4-10.2); Carbon Dioxide 24 mmol/L (22-32); Chloride 107 mmol/L (98-107); Estimated Glomerular Filt Rate > 60 mL/min (>60); Globulin 3.3 g/dL (1.7-4.1); Glucose 268 mg/dL (70-100); HEMOLYSIS < 15 (0-50); Magnesium 1.7 mg/dL (1.6-2.3); Potassium 3.9 mmol/L (3.4-5.1); Sodium 133 mmol/L (137-145); Total Protein 5.7 g/dL (6.3-8.2)
[2024-05-20 08:00] VITALS: BP 148/98; PULSE 69; RESP 12; TEMP 36.5; O2SAT 98
--- NOTE | 2024-05-20 08:31 | PM.PN.1 ---
Subjective Subjective Interval history: He is still feeling weak and having dysuria. He denies any fevers. Some anorexia, no nausea. Exam Vital Signs (past 8 hours): - 05/20/24 03:30 Temperature 98.7 F Pulse Rate 74 Respiratory Rate 20 Blood Pressure 114/65 Pulse Oximetry 98 Oxygen Flow Rate 0 Oxygen Delivery Method Room Air Oxygen Flow Rate 0 Narrative Exam Narrative: NAD, alert and oriented. Fluent speech. Flat affect. Lungs are clear, normal rate and effort. Heart is regular, no murmur gallop or rub. Abdomen is soft, non distended. Extremities are free of edema. Objective Labs 05/20/24 05:14 05/20/24 05:14 Labs: Laboratory Results - last 24 hr 05/19/24 05/20/24 05:16 05:14 WBC 13.5 H RBC 3.55 L Hgb 10.8 L Hct 31.2 L MCV 87.8 MCH 30.3 MCHC 34.5 RDW 13.7 Plt Count 179 Neut % (Auto) 87.5 H Lymph % (Auto) 5.9 L [place] % (Auto) 5.6 Eos % (Auto) 0.7 L Baso % (Auto) 0.3 Neut # (Auto) 44742 H Lymph # (Auto) 800 L [place] # (Auto) 800 Eos # (Auto) 100 Baso # (Auto) 0 Sodium 133 L Potassium 3.9 Chloride 107 Carbon Dioxide 24 BUN 16 Creatinine 0.50 L Estimated GFR > 60 BUN/Creatinine Ratio 32.0 H Glucose 268 H Calcium 7.5 L Magnesium 1.7 Total Bilirubin 0.8 AST 132 H ALT 158 H Alkaline Phosphatase 199 H Total Protein 5.7 L Albumin 2.4 L Globulin 3.3 Albumin/Globulin Ratio 0.7 L Hep B Core Total Ab Negative [facility] Medical History Hepatitis C Perineal pain in male Methamphetamine use Dysuria Social History Smoking Status: Never smoker alcohol intake: former Assessment & Plan Assessment & Plan narrative: 1) Abscess of prostate, sepsis. Present on admission and active. Operative Culture grew E coli, pansensitive. - continue levofloxacin - s/p drainage of abscess on 05/18/24 - follow up blood, urine, and operative cultures. - Initial SOFA score of 1. SOFA score of 2 after development of hypotension post-operatively. Hypotension improved with IV fluids. - added pyridium for dysuria, changed oxycodone to dilaudid PO in attempts for more adequate pain control. IV dilaudid he states does relieve symptoms more. (2) Anxiety with depression, present on admission and stable. - continue home wellbutrin (3) GERD (gastroesophageal reflux disease), present on admission and stable. - replace home omeprazole with pantoprazole (4) Diabetes 2, present on admission and stable. - while NPO continue long acting insulin at 1/2 home dose or 10 U BID, increase when diet ordered. - low dose sliding scale ordered (5) HTN (hypertension), present on admission and stable. - hold home lisinopril prior to OR, and in setting of possible sepsis. (6) Presume Active Hep C, present on admission and stable. - will send hepatitis serologies, has known hep C, will attempt to get PCP records, patient was told he was not indicated for treatment previously. - hep C has reflex quant. now pending Follow up results. - trend AST/ALT and bilirubin. PLAN: -continue current medications. -continue antibiotics and follow cultures. -probable discharge on oral antibiotics and 1-2 days. Code: Full, surrogate is patient's son DVT: SCDs Time-Based Coding :: [TOTAL MINUTES] spent with patient and on the chart (including review of chart, obtaining history, exam, reviewing outside data, placing orders, documenting exam and treatment plan, and counseling patient) on [DATE].
[2024-05-20] MEDS: INSULIN GLARGINE 100 UNIT/ML 3ML PEN 20 UNIT SUBCUT ×2 (08:40→20:11)
[2024-05-20] MEDS: INSULIN LISPRO 100 UNIT/ML 3ML VIAL SUBCUT ×4 (08:40→20:12)
[2024-05-20] MEDS: PANTOPRAZOLE DR 40 MG TABLET PO (08:42)
[2024-05-20] MEDS: BUSPIRONE 5 MG TABLET 10 MG PO ×2 (08:42→20:10)
[2024-05-20] MEDS: KETOROLAC 30 MG/ML VIAL IV ×2 (08:43→15:12)
[2024-05-20] MEDS: HYDROMORPHONE 2 MG TABLET 4 MG PO ×3 (08:43→18:31)
[2024-05-20] MEDS: PHENAZOPYRIDINE 100 MG TABLET 200 MG PO ×3 (08:43→20:10)
[2024-05-20] MEDS: buPROPion 100 MG TABLET PO ×2 (08:43→20:10)
[2024-05-20] MEDS: GABAPENTIN 300 MG CAPSULE PO ×2 (08:43→20:10)
[2024-05-20] MEDS: SODIUM CHLORIDE 0.9% FLUSH 10 ML IV ×2 (08:55→20:12)
[2024-05-20] MEDS: polyethylene glycoL 3350 17 GM POWD.PACK PO (09:33)
[2024-05-20 10:16] VITALS: PULSE 78; RESP 16; O2SAT 97
[2024-05-20] MEDS: ALBUTEROL 2.5 MG/3 ML NEB (ADULT) INH (10:16)
[2024-05-20] MEDS: MAGNESIUM CHLORIDE 64 MG TABLET 128 MG PO (10:30)
[2024-05-20] MEDS: SODIUM CHLORIDE 0.9% 1,000 ML 100 ML IV ×2 (10:30→20:55)
[2024-05-20 14:00] VITALS: BP 132/85; PULSE 68; RESP 18; TEMP 36.3; O2SAT 97
--- NOTE | 2024-05-20 15:01 | CM.DPNOTE ---
Addendum entered by LOUIS Johnson 05/20/24 15:44: ADD: Patient admits to meth use, last use one month ago. Patient reports he plans to remain sober upon discharge. Patient denies need for ILIR treatment or recovery resources at this time. Original Note: [facility]ra Cont Met w/patient to review discharge plan. Patient explains that tasks of daily life have become more challenging for him. Patient has no current income has food stamps, and currently lives alone in a subsidized apartment in [place] Patient reports that cooking and cleaning are difficult and patient often lacks the executive functioning to manage his bills and other tasks that require organization and follow through. Patient would like to live in an assisted living facility someday, states he would benefit from a more structured monitored care environment. Discussed HH services and patient agreeable. Referral emailed to [facility] with face sheet, HH order, completed and signed F2F and H+P. Requested HH RN/OT/GANG P[facility]HER. In addition, completed the [facility] application with patient today, signed copy faxed to [facility] on patient's behalf to F [phone]. This is not an expedited request. Patient understands that he will discharge home and need to wait to hear from a state business process representative to scheduled his functional assessment at home. Patient states appreciation for the help in this process. Plan: Discharge home, likely via [facility] transport, [facility] if accepted on to service (try [facility] if [facility] declines), LTC follow up-outpatient. CM team will plan to follow closely for coordination. MARCOS
[2024-05-20] MEDS: LACTULOSE 20 GM/30 ML SOLUTION PO (15:18)
[2024-05-20 18:00] VITALS: BP 119/73; PULSE 70; RESP 20; TEMP 36.4; O2SAT 96
[2024-05-20 20:10] VITALS: BP 123/64; PULSE 64; RESP 18; TEMP 35.9; O2SAT 95
[2024-05-20] MEDS: HYDROMORPHONE 2 MG TABLET PO (21:48)
[2024-05-20] MEDS: levoFLOXacin 750 MG/150 ML PIGGYBACK 100 MG IV (23:43)
[2024-05-21] VITALS: BP 122/80; PULSE 73; RESP 18; TEMP 36.1; O2SAT 95
[2024-05-21] MEDS: KETOROLAC 30 MG/ML VIAL IV ×3 (02:09→17:55)
[2024-05-21] MEDS: HYDROMORPHONE 2 MG TABLET 4 MG PO ×5 (02:10→20:40)
[2024-05-21 04:57] LABS: Add Manual Diff / Slide Review NO; Basophils Absolute Auto 100 /uL (0-100); Basophils Percent Auto 0.7 % (0-2); Eosinophils Absolute Auto 100 /uL (0-450); Eosinophils Percent Auto 0.9 % (2-4); Hematocrit 30.6 % (41-53); Hemoglobin 10.4 g/dL (13.5-17.5); Lymphocytes Absolute Auto 600 /uL (1100-4500); Lymphocytes Percent Auto 7.2 % (25-40); Mean Corpuscular HGB Conc 34.1 % (30-36); Mean Corpuscular Hemoglobin 30.1 PG (26-34); Mean Corpuscular Volume 88.4 fL (80-100); Monocytes Absolute Auto 600 /uL (0-900); Monocytes Percent Auto 6.9 % (3-14); Neutrophils Absolute Auto 7300 /uL (1500-7000); Neutrophils Percent Auto 84.3 % (50-75); Platelet Count 197 X10^3/uL (150-400); Red Blood Cell Count 3.46 X10^6/uL (4.5-5.9); Red Cell Distribution Width 13.9 % (11.6-14.8); White Blood Cell Count 8.6 X10^3/uL (4.5-11.0)
[2024-05-21 05:24] LABS: Alanine Aminotransferase 155 IU/L (<50); Albumin 2.4 g/dL (3.5-5.0); Albumin Globulin Ratio 0.7 (1.0-2.8); Alkaline Phosphatase 196 U/L (38-126); Aspartate Aminotransferase 107 IU/L (17-59); BUN Creatinine Ratio 31.1 (6-22); Bilirubin Total 0.5 mg/dL (0.2-1.3); Blood Urea Nitrogen 14 mg/dL (9-20); Calcium 7.6 mg/dL (8.4-10.2); Carbon Dioxide 26 mmol/L (22-32); Chloride 106 mmol/L (98-107); Estimated Glomerular Filt Rate > 60 mL/min (>60); Globulin 3.4 g/dL (1.7-4.1); Glucose 239 mg/dL (70-100); HEMOLYSIS < 15 (0-50); Magnesium 1.7 mg/dL (1.6-2.3); Potassium 4.1 mmol/L (3.4-5.1); Sodium 132 mmol/L (137-145); Total Protein 5.8 g/dL (6.3-8.2)
[2024-05-21] MEDS: PANTOPRAZOLE DR 40 MG TABLET PO (06:03)
--- NOTE | 2024-05-21 07:51 | PM.PN.1 ---
Subjective Subjective Interval history: He was improving. He is still has suprapubic pain at 5/10. His ability to urinate is better. He still has dark-colored urine. No fevers or chills. He was constipated and has had no bowel movement for many days. He has had some flatus. He was weak but improving. Exam Vital Signs (past 8 hours): - 05/21/24 00:00 Temperature 97 F L Pulse Rate 73 Respiratory Rate 18 Blood Pressure 122/80 Pulse Oximetry 95 Oxygen Flow Rate 0 Fraction of Inspired Oxygen 21 SaO2/FiO2 Ratio 461 Oxygen Delivery Method Room Air Oxygen Flow Rate 0 Narrative Exam Narrative: NAD, alert and oriented. Fluent speech. Lungs are clear, normal rate and effort. Heart is regular, no murmur gallop or rub. Abdomen is soft, non distended. Extremities are free of edema. Objective Labs 05/21/24 04:22 05/21/24 04:22 Labs: Laboratory Results - last 24 hr 05/21/24 04:22 WBC 8.6 RBC 3.46 L Hgb 10.4 L Hct 30.6 L MCV 88.4 MCH 30.1 MCHC 34.1 RDW 13.9 Plt Count 197 Neut % (Auto) 84.3 H Lymph % (Auto) 7.2 L [place] % (Auto) 6.9 Eos % (Auto) 0.9 L Baso % (Auto) 0.7 Neut # (Auto) 7300 H Lymph # (Auto) 600 L [place] # (Auto) 600 Eos # (Auto) 100 Baso # (Auto) 100 Sodium 132 L Potassium 4.1 Chloride 106 Carbon Dioxide 26 BUN 14 Creatinine 0.45 L Estimated GFR > 60 BUN/Creatinine Ratio 31.1 H Glucose 239 H Calcium 7.6 L Magnesium 1.7 Total Bilirubin 0.5 AST 107 H ALT 155 H Alkaline Phosphatase 196 H Total Protein 5.8 L Albumin 2.4 L Globulin 3.4 Albumin/Globulin Ratio 0.7 L PFSH Medical History Hepatitis C Perineal pain in male Methamphetamine use Dysuria Social History Smoking Status: Never smoker alcohol intake: former Assessment & Plan Assessment & Plan narrative: 1. Abscess of prostate, sepsis. Present on admission and active. Operative Culture grew E coli, pansensitive. - continue levofloxacin (14 days duration). - s/p drainage of abscess on 05/18/24, improving. - follow up blood (neg), urine, and operative cultures. - Initial SOFA score of 1. SOFA score of 2 after development of hypotension post-operatively. Hypotension improved with IV fluids. 2. Anxiety with depression, present on admission and stable. - continue home wellbutrin. 3. GERD (gastroesophageal reflux disease), present on admission and stable. - replace home omeprazole with pantoprazole 4. Diabetes 2, present on admission and stable. - increase Lantus to 30 b.i.d., increase correctional to high dose. 5. HTN (hypertension), present on admission and stable. - hold home lisinopril prior to OR, and in setting of possible sepsis. 6. Active Hep C, present on admission and stable. - will send hepatitis serologies, has known hep C, will attempt to get PCP records, patient was told he was not indicated for treatment previously. - hep C has reflex quant. now pending Follow up results. - trend AST/ALT and bilirubin. PLAN: -continue current medications. -continue antibiotics and follow cultures. -probable discharge on oral antibiotics and 1 days. -increase bowel meds today. Code: Full, surrogate is patient's son DVT: SCDs Time-Based Coding :: 30 min spent with patient and on the chart (including review of chart, obtaining history, exam, reviewing outside data, placing orders, documenting exam and treatment plan, and counseling patient) on 05/20.
[2024-05-21 08:00] VITALS: BP 115/71; PULSE 60; RESP 12; TEMP 36.2; O2SAT 96
[2024-05-21] MEDS: INSULIN LISPRO 100 UNIT/ML 3ML VIAL SUBCUT ×4 (08:29→20:32)
[2024-05-21] MEDS: MAGNESIUM CHLORIDE 64 MG TABLET 128 MG PO (08:30)
[2024-05-21] MEDS: INSULIN GLARGINE 100 UNIT/ML 3ML PEN 30 UNIT SUBCUT ×2 (08:31→20:23)
[2024-05-21] MEDS: BUSPIRONE 5 MG TABLET 10 MG PO ×2 (08:32→20:20)
[2024-05-21] MEDS: buPROPion 100 MG TABLET PO ×2 (08:32→20:20)
[2024-05-21] MEDS: GABAPENTIN 300 MG CAPSULE PO ×2 (08:32→20:20)
[2024-05-21] MEDS: SODIUM CHLORIDE 0.9% FLUSH 10 ML IV (08:33)
[2024-05-21] MEDS: SODIUM CHLORIDE 0.9% 1,000 ML 100 ML IV ×2 (08:33→18:30)
[2024-05-21 11:54] VITALS: PULSE 62; RESP 18; O2SAT 98
[2024-05-21] MEDS: ALBUTEROL 2.5 MG/3 ML NEB (ADULT) INH (11:54)
--- NOTE | 2024-05-21 12:32 | CM.DPC ---
DCP Cont. Reviewed EMR and team rounds for status updates. Plan is to continue IV ABO's for another 1-2 days. [facility] has denied, sent referral to [facility] for review. Plan is then home at d/c, will likely need either Medicaid transport or taxi voucher for transport home.
[2024-05-21 14:00] VITALS: BP 116/72; PULSE 71; RESP 15; TEMP 36.3; O2SAT 98
[2024-05-21] MEDS: LACTULOSE 20 GM/30 ML SOLUTION 40 GM PO (15:14)
[2024-05-21] MEDS: BISACODYL 10 MG SUPP PR (18:30)
[2024-05-21 20:00] VITALS: BP 137/82; PULSE 69; RESP 18; TEMP 36.6; O2SAT 95
[2024-05-21] MEDS: polyethylene glycoL 3350 17 GM POWD.PACK PO (20:49)
[2024-05-22] MEDS: levoFLOXacin 750 MG/150 ML PIGGYBACK 100 MG IV (00:13)
--- NOTE | 2024-05-22 00:27 | PC.NURSE ---
Patient is oriented except to day of month but reports he has long standing short term memory loss. Has no teeth but reports he does have dentures but does not have them here with him. Breath sounds CTA with RA sat of 95%. HRR. Denied nausea. BT present although hypoactive and is passing flatus but has not had a BM since 05/15 despite use of Miralax, Lactulose and suppository; given Miralax again tonight. Is voiding per urinal and urine is tea colored and patient reports dysuria although states it is better than it was. Is able to turn himself in bed. Is voiding per urinal and stands at side of bed to urinate. If he is going any further out of bed he is provided SBA for safety. Refusing SCD's so reminded to ankle wave when awake. Reports numbness on plantar surface of bilateral forefoot but is chronic and has had no change since hospitalization. Did complain of lower abdominal/suprapubic pain and was medicated with dilaudid with resolution of pain. Fall risk score is high but refuses bed alarm as he gets up to urinate; agreeable to calling for staff assist if he goes any further than side of bed.
[2024-05-22 01:30] VITALS: BP 162/92; PULSE 60; RESP 20; TEMP 36.7; O2SAT 99
[2024-05-22] MEDS: HYDROMORPHONE 2 MG TABLET 4 MG PO ×3 (01:39→09:55)
[2024-05-22] MEDS: SODIUM CHLORIDE 0.9% 1,000 ML 100 ML IV (04:54)
[2024-05-22] MEDS: PANTOPRAZOLE DR 40 MG TABLET PO (06:36)
[2024-05-22 08:02] VITALS: BP 127/83; PULSE 64; RESP 20; TEMP 36.2; O2SAT 97
[2024-05-22] MEDS: INSULIN GLARGINE 100 UNIT/ML 3ML PEN 30 UNIT SUBCUT (09:54)
[2024-05-22] MEDS: BUSPIRONE 5 MG TABLET 10 MG PO (09:55)
[2024-05-22] MEDS: GABAPENTIN 300 MG CAPSULE PO (09:55)
[2024-05-22] MEDS: buPROPion 100 MG TABLET PO (09:55)
--- NOTE | 2024-05-22 10:37 | DIET.CONS2 ---
Dietary Inpatient Consultation Note Admission Date: 05/18/2024 13:20 100% po intakes recorded, ons max protein bid continued. Unit host/kitchen coordinating food texture based on pt preference d/t no teeth- meats minced and moist w/ extra sauce or pureed. Will continue to monitor po intakes. Diet: 05/18/24 Dinner Carbohydrate Consistent Diet Diet Modifications: Carbohydrate level: Large (4 CHO) Reflex DM orders: No Food Texture: Level 7 - Regular Liquid Consistency: Level 0 - Thin Nutrition Percent Meal Consumed 100% 05/22/24 09:11 Percent Meal Consumed 100% 05/21/24 18:00 Percent Meal Consumed 100% 05/21/24 13:14 Percent Meal Consumed 100% 05/21/24 08:00 Percent Meal Consumed 100% 05/20/24 18:00 Percent Meal Consumed 100% 05/20/24 14:00 Electronically Signed by: Trina Rebollar 05/22/24 10:37 Clinical Dietitian [address] [address]
--- NOTE | 2024-05-22 11:00 | P.DS_ITS ---
History of Present Illness History of Present Illness Chief complaint: painful urination/prostate fluid collection Narrative: 58 y/o with PMH of reportedly untreated hep C, anxiety, depression, methamphetamine use, GERD, HTN, DM presented with painful urination that started almost 2 weeks ago. He had a course of antibiotic and pyridium that helped only partially. Workup in the ED showing 3.5 cm prostate abscess with surrounding prostatitis and adjacent limited proctocolitis. Discussed with urology this morning extensively, ordered for further evaluation with MRI and urethrogram. Urology took patient to the OR. Discharge Providers Provider Date of admission: 05/18/24 13:20 Discharge Date: 05/22/24 Consults: 05/18/24 02:56 Consult to Urology Routine Comment: Consulting Provider: Benja Esquivel Reason for consultation: prostatic abscess Has provider been notified: Yes 05/18/24 15:50 Consult to OFFICE RN - Division Traffic Superintendent Routine Comment: Division Traffic Superintendent Consult needed for:: Substance abuse Other reason (Comment) Comment: unstable housing 05/18/24 15:51 Consult to Dietitian, Adult Routine Comment: Reason For Exam: diabetes 05/20/24 14:46 Consult to Home Health Routine Comment: Reason For Exam: Home health upon discharge Discharge provider: Dieter Bassett MD Summary Hospital Course Discharge Diagnosis: 1. Abscess of prostate, sepsis. Present on admission and active. Operative Culture grew E coli, pansensitive. - continue levofloxacin (14 days duration). - s/p drainage of abscess on 05/18/24, improving. - follow up blood (neg), urine, and operative cultures. - Initial SOFA score of 1. SOFA score of 2 after development of hypotension post-operatively. Hypotension improved with IV fluids. 2. Anxiety with depression, present on admission and stable. 3. GERD (gastroesophageal reflux disease), present on admission and stable. 4. Diabetes 2, present on admission and stable. 5. HTN (hypertension), present on admission and stable. 6. Active Hep C, present on admission and stable. Hospital Course: The patient presented with evidence of prostate infection and abscess. He went to the OR on May 18 where he underwent transurethral unroofing of the prostate abscess and transurethral resection of prostate. The patient was continued on IV antibiotics postprocedure with cultures from surgery reveal an E coli. The patient had a fair amount of pelvic pain and dysuria but this improved rapidly overThe last 2 days of admission. Blood cultures remained negative. A resolved to stop using methamphetamines, which she has been using for decades. His diabetes was controlled with 30 b.i.d.. SILVERIO inhibitor was held for a short time. On the day of discharge he was at or new when. He was happy to go home, and we will see Dr. Esquivel within the next 10 days. The patient we will take Cipro 500 b.i.d. for [address] Esquivel can extend that this if he would like to follow up appointment. Status at Discharge Cognitive/behavioral status at discharge: oriented Functional status at discharge: independent ambulation Overall status at discharge: patient is back to baseline Time Spent with Patient Time spent: Greater than 30 minutes Exam Vital Signs (past 8 hours): - 05/22/24 08:02 Temperature 97.2 F L Pulse Rate 64 Respiratory Rate 20 Blood Pressure 127/83 Pulse Oximetry 97 Oxygen Flow Rate 0 Fraction of Inspired Oxygen 21 SaO2/FiO2 Ratio 466 Oxygen Delivery Method Room Air Oxygen Flow Rate 0 Narrative Exam Narrative: NAD, alert and oriented. Fluent speech. Lungs are clear, normal rate and effort. Heart is regular, no murmur gallop or rub. Abdomen is soft, non distended. Extremities are free of edema. Objective Imaging Multiple studies:: Radiologist's impression: Prostate MRI: Rim enhancing multiloculated fluid collection within the prostate, extending outside the capsule in multiple locations as described above. This is probably an abscess. Differential includes underlying neoplasm, including mucinous subtypes. Consider follow-up imaging following treatment and possible sampling. Mild diffuse bladder wall thickening, correlate urinalysis. Striated appearance of the peripheral zone of the prostate, probably sequelae of prostatitis. Rectal wall thickening also seen, consider age-appropriate colonoscopy correlation. This could be proctitis. Mildly enlarged pelvic lymph nodes, possibly reactive, attention on follow-up. Urethrogram: Normal appearance of the urethra. APCT: Irregular and heterogeneously enhancing prostate with rim enhancing fluid collection measuring up to 3.6 cm is concerning for prostatitis with abscess. Rectosigmoid bowel wall thickening concerning for proctocolitis. Labs 05/22/24 11:01 05/22/24 11:01 [facility] Medical History Hepatitis C Perineal pain in male Methamphetamine use Dysuria Social History Smoking Status: Never smoker alcohol intake: former Discharge Assessment & Plan Assessment and Plan Assessment: 1. Abscess of prostate, sepsis. Present on admission and active. Operative Culture grew E coli, pansensitive. - continue levofloxacin (14 days duration). - s/p drainage of abscess on 05/18/24, improving. - follow up blood (neg), urine, and operative cultures. - Initial SOFA score of 1. SOFA score of 2 after development of hypotension post-operatively. Hypotension improved with IV fluids. 2. Anxiety with depression, present on admission and stable. 3. GERD (gastroesophageal reflux disease), present on admission and stable. 4. Diabetes 2, present on admission and stable. 5. HTN (hypertension), present on admission and stable. 6. Active Hep C, present on admission and stable. Plan of Treatment: Stable for discharge home. He was a follow up with Dr. Esquivel within the next10 days, we will continue antibiotics until that time. Discharge Plan Discharge Plan Patient Disposition: Home Health Service Provider Discharge Comment: Stable for discharge home with oral antibiotics and close Urology follow up. Discharge orders & Medications Prescriptions: New oxycodone-acetaminophen [Percocet] 5-325 mg tablet 1 tab PO Q8H PRN (Reason: pain) Qty: 20 0RF ciprofloxacin HCl [Cipro] 500 mg tablet 500 mg PO BID Qty: 30 0RF Continued omeprazole 40 mg capsule,delayed release(DR/EC) 40 mg PO DAILY bupropion HCl 100 mg tablet 100 mg PO BID buspirone 10 mg tablet 10 mg PO BID gabapentin 300 mg capsule 300 mg PO BID lisinopril 5 mg tablet 5 mg PO DAILY albuterol sulfate 90 mcg/actuation HFA aerosol inhaler 1 puff inhalation PRN MDD 5 PRN (Reason: Shortness Of Breath Or Wheezing) insulin aspart U-100 [Novolog FlexPen U-100 Insulin] 100 unit/mL (3 mL) insulin pen 1 sliding scale dose SUBCUT ACHS Patient Comments: [NO ORIGINAL SIG] Levemir FlexPen 100 unit/mL (3 mL) insulin pen 20 unit SUBCUT BID Patient Comments: [NO ORIGINAL SIG] cetirizine 10 mg tablet 10 mg PO DAILY phenazopyridine 100 mg tablet 200 mg PO 3XD Medication counseling provided by Pharmacist: No Follow up/Referrals: Benja Esquivel MD [Physician] - (FU prostate abscess) Diet/Activity/Treatments Diet: Carb-consistent/Diabetic Skin/Wound/Dressing Care Report to your healthcare provider any signs of infection, such as:: chills, fever and increased pain Visit Report/Discharge Packet Instructions: Ciprofloxacin, DI for Acute Prostatitis, Oxycodone/Acetaminophen (By mouth) Stand Alone Forms: Patient Portal/API
[2024-05-22 11:14] LABS: Add Manual Diff / Slide Review YES; Hematocrit 36.3 % (41-53); Hemoglobin 12.3 g/dL (13.5-17.5); Mean Corpuscular HGB Conc 33.8 % (30-36); Mean Corpuscular Volume 88.6 fL (80-100); Platelet Count 282 X10^3/uL (150-400); Red Cell Distribution Width 13.7 % (11.6-14.8); White Blood Cell Count 10.1 X10^3/uL (4.5-11.0)
--- NOTE | 2024-05-22 11:17 | PC.NURSE ---
Addendum entered by Kady Salvador R.N. 05/22/24 15:41: Patient discharged, Ryan donnelly to pick him up in the front entrance of the hospital. Original Note: Patient given pain medication earlier, blood sugar 94. His urine is dark yellow, no blood noted. He will be discharging home today.
[2024-05-22 11:29] VITALS: BP 136/90; PULSE 69; RESP 18; TEMP 36.1; O2SAT 96
[2024-05-22 11:33] LABS: BUN Creatinine Ratio 25.5 (6-22); Blood Urea Nitrogen 12 mg/dL (9-20); Calcium 8.2 mg/dL (8.4-10.2); Carbon Dioxide 28 mmol/L (22-32); Chloride 105 mmol/L (98-107); Estimated Glomerular Filt Rate > 60 mL/min (>60); Glucose 125 mg/dL (70-100); HEMOLYSIS 30 (0-50); Potassium 4.6 mmol/L (3.4-5.1); Sodium 134 mmol/L (137-145)
[2024-05-22 11:43] LABS: Neutrophils Absolute Manual 8181 /uL (3000-5900); Platelet Estimate Adequate on smear; RBC Morphology Normal Morphology; Total Cells Counted 100
--- NOTE | 2024-05-22 11:53 | CM.DPNOTE ---
Addendum entered by LOUIS Diana 05/22/24 16:00: ROCKET ENGINE COMPONENT MECHANIC picked up scripts for pt from pharmacy. ROCKET ENGINE COMPONENT MECHANIC hand delivered scripts to pt in room. Pt appreciative. ROCKET ENGINE COMPONENT MECHANIC gave him copy of medicaid phone numbers to call for more care management information. pt appreciative. From [facility] [place], Medicaid [facility] transport to pick him up at 3:45 in main area. ROCKET ENGINE COMPONENT MECHANIC updated RN/ASH KIER BOILER and pt. All in agreement. ROCKET ENGINE COMPONENT MECHANIC tubed phone furnace charger back to ED, appreciate their assistance. P: home today with medicaid transport. CM team will follow as needed SL Original Note: DCP note ROCKET ENGINE COMPONENT MECHANIC reviewed EMR. Per chart review, pt denied by [facility] and [facility] for services. Per provider, cleared to dc home today, no need for HH services. Pt requesting help with ride. Gave this ROCKET ENGINE COMPONENT MECHANIC scripts for pt. ROCKET ENGINE COMPONENT MECHANIC met with pt in room. COnfirmed need for ride home. Gave approval for scripts to be sent here. Disappointed no HH available. reports he's nervous about managing at home but is hopeful that [facility] LTC assessment would help him with LTC placement. Reports needing phone furnace charger for getting bryant to home. Asked questions about Medicaid coverage. This ROCKET ENGINE COMPONENT MECHANIC provided him phone number for Medicaid contacts. Confirmed agreeable to have scripts filled here. ROCKET ENGINE COMPONENT MECHANIC confirmed with [facility] that he has transport benefits. ED ROCKET ENGINE COMPONENT MECHANIC Deena VERY kindly let this ROCKET ENGINE COMPONENT MECHANIC borrow their phone furnace charger for pt use. Let pt borrow, in agreement to return it. ROCKET ENGINE COMPONENT MECHANIC faxed script to [facility]. Pharmacists will let CM know when ready for p/u. ROCKET ENGINE COMPONENT MECHANIC will fax formal request for Medicaid transport home when scripts ready. P: home with Medicaid transport. Scripts needed. CM team will follow clsoely. LOUIS Diana
[2024-05-22] MEDS: INSULIN LISPRO 100 UNIT/ML 3ML VIAL SUBCUT (12:47)
[2024-05-22] MEDS: HYDROMORPHONE 2 MG TABLET PO (13:39)
[2024-05-23 09:36] LABS: Hepatitis B Surf Ab Qualitativ Non Reactive (.)
== END 2024-05-22 15:43 | disposition home or self-care (01) | DRG 501 ==
LOC: ED 05-18 02:41 → AC 05-18 02:56
PROVIDERS: Hospitalist; Internal Medicine; Urology; Admitting Provider Internal Medicine; Emergency Provider Emergency Medicine; Referring Provider Emergency Medicine; Visit Provider Internal Medicine
PROC: 0VT08ZZ Resection of Prostate, Via Natural or Artificial Opening Endoscopic (ICD-10-PCS; CPT 52601; principal; 2024-05-18 13:15)
DX: N41.2 Abscess of prostate (principal); B19.20 Unspecified viral hepatitis C without hepatic coma; F41.9 Anxiety disorder, unspecified; F32.A Depression, unspecified; K21.9 Gastro-esophageal reflux disease without esophagitis; E11.9 Type 2 diabetes mellitus without complications; I10 Essential (primary) hypertension; F15.90 Other stimulant use, unspecified, uncomplicated; A41.9 Sepsis, unspecified organism; B96.20 Unspecified Escherichia coli [E. coli] as the cause of diseases classified elsewhere; J45.909 Unspecified asthma, uncomplicated; Z79.4 Long term (current) use of insulin
CPT/HCPCS: 36415; 51610; 51798; 72197; 74177; 74450; 80048; 80053; 81003; 81015; 82962; 83690; 83735; 85007; 85025; 86704; 86706; 86803; 87070; 87075; 87077; 87086; 87186; 87205; 87340; 87491; 87522; 87591; 93005; 94640; 96365; 96375; 99283; 99285; G0378; A9579; J0295; J1100; J1170; J1815; J1885; J1956; J2250; J2405; J2470; J2704; J3010; J7613; Q9967

== ENCOUNTER 2024-05-25 14:47 | Emergency (ER) | payer OTHER, MEDICAID, SELFPAY ==
[2024-05-18 03:50] VITALS: BMI 24.3
[2024-05-25] VITALS (11 sets, daily range): BP systolic 127–137; BP diastolic 75–89; PULSE 84–110; RESP 11–25; TEMP 37.1; O2SAT 97–100; BMI 28.0
--- NOTE | 2024-05-25 15:03 | DI.RAD.S_ITS ---
PROCEDURE: XR CHEST 1V INDICATIONS: suspected sepsis TECHNIQUE: One view of the chest was acquired. COMPARISON: None. FINDINGS: Surgical changes and devices: None. Lungs and pleura: Lungs are clear. No pleural effusions or pneumothorax. Mediastinum: Mediastinal contours appear normal. Heart size is normal. Bones and chest wall: No suspicious bony lesions. Overlying soft tissues appear unremarkable. IMPRESSION: No acute cardiopulmonary abnormality is seen. Dictated by: Yoan Cabral M.D. on 05/25/2024 at 16:02 Approved by: Yoan Cabral M.D. on 05/25/2024 at 16:02
--- NOTE | 2024-05-25 15:03 | EKG_ITS ---
[address] [address] Test Date: 2024-05-25 Pat Name: Myles Segovia Department: [facility] Room: Gender: Male Looper Fixer: GERARDO : 1965 Requested By: Order Number: [id number] Reading MD: Mohsen Jenkins MD Measurements Intervals [place] Rate: 86 P: 35 [place]: 154 QRS: 2 QRSD: 120 T: 14 QT: 410 QTc: 490 Interpretive Statements Normal sinus rhythm Right bundle branch block NO SIGNIFICANT CHANGE FROM PRIOR TRACING Electronically Signed On 05-25-2024 17:03:12 PDT by Mohsen Jenkins MD
[2024-05-25 15:38] LABS: Add Manual Diff / Slide Review NO; Basophils Absolute Auto 100 /uL (0-100); Basophils Percent Auto 1.1 % (0-2); Eosinophils Absolute Auto 100 /uL (0-450); Hematocrit 32.7 % (41-53); Hemoglobin 11.2 g/dL (13.5-17.5); Lymphocytes Absolute Auto 700 /uL (1100-4500); Lymphocytes Percent Auto 12.1 % (25-40); Mean Corpuscular HGB Conc 34.1 % (30-36); Mean Corpuscular Hemoglobin 30.8 PG (26-34); Mean Corpuscular Volume 90.5 fL (80-100); Monocytes Absolute Auto 500 /uL (0-900); Monocytes Percent Auto 9.3 % (3-14); Neutrophils Absolute Auto 4300 /uL (1500-7000); Neutrophils Percent Auto 75.5 % (50-75); Platelet Count 321 X10^3/uL (150-400); Red Blood Cell Count 3.62 X10^6/uL (4.5-5.9); Red Cell Distribution Width 14.2 % (11.6-14.8); White Blood Cell Count 5.7 X10^3/uL (4.5-11.0)
[2024-05-25 15:47] LABS: PTT Partial Thromboplastin Tim 37 SECONDS (25.1-36.5)
[2024-05-25 15:49] LABS: Lactate (Lactic Acid) 2.1 mmol/L (0.7-2.1)
[2024-05-25 15:50] LABS: Creatine Kinase 49 U/L (55-170)
--- NOTE | 2024-05-25 15:50 | ED_ITS ---
HPI - Extremity Problem <Shaw Catherine DO - Last Filed: 05/26/24 07:04> General Chief complaint: Extremity Problem,Nontraumatic Stated complaint: return to ER, leg swelling Time Seen by Provider: 05/25/24 15:13 Source: patient Mode of arrival: Ambulatory History of Present Illness HPI Narrative: Patient is a 58-year-old male. At the end of last week he underwent a urologic procedure where he stated that they cleared out an infection and did surgery to his urethra. He never had a Melissa catheter afterwards. Was discharged home a couple days later. States he has been urinating with some burning with urination but it has been improving. Since he was discharged home he was had progressively worsening lower extremity swelling. No fevers. No chest pain. No shortness of breath. Potentially feels like his abdomen is somewhat swollen as well. He initially had swelling in his groin after the procedure but that has since resolved. Related Data Home Medications Medication Instructions Recorded Confirmed albuterol sulfate 90 mcg/actuation 1 puff inhalation PRN PRN 05/18/24 05/18/24 aerosol inhaler Shortness Of Breath Or Wheezing bupropion HCl 100 mg tablet 100 mg PO BID 05/18/24 05/18/24 buspirone 10 mg tablet 10 mg PO BID 05/18/24 05/18/24 cetirizine 10 mg tablet 10 mg PO DAILY 05/18/24 05/18/24 gabapentin 300 mg capsule 300 mg PO BID 05/18/24 05/18/24 insulin aspart U-100 100 unit/mL 1 sliding scale dose SUBCUT ACHS 05/18/24 05/18/24 (3 mL) subcutaneous pen (Novolog FlexPen U-100 Insulin aspart) insulin detemir U-100 100 unit/mL 20 unit SUBCUT BID 05/18/24 05/18/24 (3 mL) subcutaneous pen (Levemir FlexPen) lisinopril 5 mg tablet 5 mg PO DAILY 05/18/24 05/18/24 omeprazole 40 mg capsule,delayed 40 mg PO DAILY 05/18/24 05/18/24 release phenazopyridine 100 mg tablet 200 mg PO 3XD Pain 05/18/24 05/19/24 Previous Rx's Medication Instructions Recorded ciprofloxacin HCl 500 mg tablet 500 mg PO BID #30 tabs 05/22/24 (Cipro) oxycodone-acetaminophen 5 mg-325 1 tab PO Q8H PRN pain #20 tabs 05/22/24 mg tablet (Percocet) furosemide 20 mg tablet 20 mg PO BID #20 tabs 05/25/24 Allergies Allergy/AdvReac Type Severity Reaction Status Date / Time codeine Allergy Verified 05/25/24 15:03 Review of Systems <Shaw Catherine DO - Last Filed: 05/26/24 07:04> Review of Systems ROS Unobtainable: All systems reviewed & are unremarkable except as noted in HPI and below Patient History <Shaw Catherine DO - Last Filed: 05/26/24 07:04> Medical History Hepatitis C Perineal pain in male Methamphetamine use Dysuria Social History Smoking Status: Never smoker alcohol intake: former Smoking Status: Never smoker alcohol intake frequency: other Substance Use Type: marijuana Exam <Shaw Catherine DO - Last Filed: 05/26/24 07:04> Initial Vital Signs Initial Vital Signs: Vital Signs Temperature 98.7 F 05/25/24 14:56 Pulse Rate 110 H 05/25/24 14:56 Respiratory Rate 25 H 05/25/24 14:56 Blood Pressure 131/83 05/25/24 14:56 Pulse Oximetry 97 05/25/24 14:56 Oxygen Delivery Method Room Air 05/25/24 14:56 Const General: cooperative, comfortable and No ill appearing [facility] Head: normal to inspection and normocephalic Resp Effort & Inspection: normal respiratory effort Auscultation: clear to auscultation bilaterally Cardio Rate: regular rate Rhythm: regular rhythm GI Inspection: normal to inspection and non-distended Skin General: no rashes or lesions noted Neuro General: patient alert, patient awake and moves all extremities Extrem General: capillary refill normal and edema <Melina Daigle MD - Last Filed: 05/26/24 05:36> Initial Vital Signs Initial Vital Signs: Vital Signs Temperature 98.7 F 05/25/24 14:56 Pulse Rate 110 H 05/25/24 14:56 Respiratory Rate 25 H 05/25/24 14:56 Blood Pressure 131/83 05/25/24 14:56 Pulse Oximetry 97 05/25/24 14:56 Oxygen Delivery Method Room Air 05/25/24 14:56 Course <Shaw Catherine DO - Last Filed: 05/26/24 07:04> Orders Ordered: Discontinued Medications Sodium Chloride (Normal Saline 0.9%) 1,000 mls @ 1,000 mls/hr IV BOLUS ONE Stop: 05/25/24 16:02 Last Admin: 05/25/24 16:11 Dose: Not Given Documented By: MANJU Furosemide 60 mg/ Sodium (Chloride) 56 mls @ 112 mls/hr IV NOW ONE Stop: 05/25/24 15:52 Last Infusion: 05/25/24 16:58 Dose: Infused Documented By: Admin: 05/25/24 16:15 Dose: 112 mls/hr Documented By: AFR[place] Sodium Chloride (Normal Saline 0.9%) 1,000 mls @ 1,000 mls/hr IV BOLUS ONE Stop: 05/25/24 19:13 Last Infusion: 05/25/24 18:50 Dose: Infused Documented By: Admin: 05/25/24 18:29 Dose: 1,000 mls/hr Documented By: MANJU Insulin Human Regular (Insulin Regular 100 Unit/Ml 3 Ml Vial) 10 unit IV NOW ONE Stop: 05/25/24 18:15 Last Admin: 05/25/24 18:30 Dose: 10 unit Documented By: MANJU Co-signed By: ALYSSA Ondansetron HCl (Ondansetron 4 Mg/2 Ml Inj) 4 mg IV NOW PRN PRN Reason: Nausea And Vomiting Ondansetron HCl (Ondansetron 4 Mg Odt) 4 mg SL NOW PRN PRN Reason: Nausea And Vomiting Vital Signs Vital signs: Vital Signs - 8 hr 05/25/24 14:56 05/25/24 15:31 05/25/24 15:33 Temperature 98.7 F Pulse Rate 110 H 100 H Respiratory Rate 25 H Blood Pressure 131/83 137/82 Pulse Oximetry 97 98 Oxygen Delivery Method Room Air 05/25/24 15:33 05/25/24 16:00 05/25/24 16:00 Temperature Pulse Rate 96 H 85 Respiratory Rate 17 14 Blood Pressure 136/82 Pulse Oximetry 98 97 Oxygen Delivery Method Room Air 05/25/24 16:30 05/25/24 16:30 05/25/24 16:53 Temperature Pulse Rate 90 91 H Respiratory Rate 21 20 Blood Pressure 134/77 Pulse Oximetry 98 98 Oxygen Delivery Method 05/25/24 16:53 05/25/24 17:00 05/25/24 17:00 Temperature Pulse Rate 84 Respiratory Rate 18 Blood Pressure 127/75 129/82 Pulse Oximetry 98 Oxygen Delivery Method 05/25/24 17:30 05/25/24 17:53 05/25/24 17:53 Temperature Pulse Rate 87 86 Respiratory Rate 18 16 Blood Pressure 136/89 Pulse Oximetry 100 98 Oxygen Delivery Method 05/25/24 18:00 05/25/24 18:00 05/25/24 18:30 Temperature Pulse Rate 86 85 Respiratory Rate 20 11 L Blood Pressure 135/88 Pulse Oximetry 98 97 Oxygen Delivery Method 05/25/24 18:30 Temperature Pulse Rate Respiratory Rate Blood Pressure 136/88 Pulse Oximetry Oxygen Delivery Method <Melina Daigle MD - Last Filed: 05/26/24 05:36> Orders Ordered: Discontinued Medications Sodium Chloride (Normal Saline 0.9%) 1,000 mls @ 1,000 mls/hr IV BOLUS ONE Stop: 05/25/24 16:02 Last Admin: 05/25/24 16:11 Dose: Not Given Documented By: MANJU Furosemide 60 mg/ Sodium (Chloride) 56 mls @ 112 mls/hr IV NOW ONE Stop: 05/25/24 15:52 Last Infusion: 05/25/24 16:58 Dose: Infused Documented By: Admin: 05/25/24 16:15 Dose: 112 mls/hr Documented By: AFR[place] Sodium Chloride (Normal Saline 0.9%) 1,000 mls @ 1,000 mls/hr IV BOLUS ONE Stop: 05/25/24 19:13 Last Infusion: 05/25/24 18:50 Dose: Infused Documented By: Admin: 05/25/24 18:29 Dose: 1,000 mls/hr Documented By: MANJU Insulin Human Regular (Insulin Regular 100 Unit/Ml 3 Ml Vial) 10 unit IV NOW ONE Stop: 05/25/24 18:15 Last Admin: 05/25/24 18:30 Dose: 10 unit Documented By: MANJU Co-signed By: ALYSSA Ondansetron HCl (Ondansetron 4 Mg/2 Ml Inj) 4 mg IV NOW PRN PRN Reason: Nausea And Vomiting Ondansetron HCl (Ondansetron 4 Mg Odt) 4 mg SL NOW PRN PRN Reason: Nausea And Vomiting Vital Signs Vital signs: Vital Signs - 8 hr 05/25/24 14:56 05/25/24 15:31 05/25/24 15:33 Temperature 98.7 F Pulse Rate 110 H 100 H Respiratory Rate 25 H Blood Pressure 131/83 137/82 Pulse Oximetry 97 98 Oxygen Delivery Method Room Air 05/25/24 15:33 05/25/24 16:00 05/25/24 16:00 Temperature Pulse Rate 96 H 85 Respiratory Rate 17 14 Blood Pressure 136/82 Pulse Oximetry 98 97 Oxygen Delivery Method Room Air 05/25/24 16:30 05/25/24 16:30 05/25/24 16:53 Temperature Pulse Rate 90 91 H Respiratory Rate 21 20 Blood Pressure 134/77 Pulse Oximetry 98 98 Oxygen Delivery Method 05/25/24 16:53 05/25/24 17:00 05/25/24 17:00 Temperature Pulse Rate 84 Respiratory Rate 18 Blood Pressure 127/75 129/82 Pulse Oximetry 98 Oxygen Delivery Method 05/25/24 17:30 05/25/24 17:53 05/25/24 17:53 Temperature Pulse Rate 87 86 Respiratory Rate 18 16 Blood Pressure 136/89 Pulse Oximetry 100 98 Oxygen Delivery Method 05/25/24 18:00 05/25/24 18:00 05/25/24 18:30 Temperature Pulse Rate 86 85 Respiratory Rate 20 11 L Blood Pressure 135/88 Pulse Oximetry 98 97 Oxygen Delivery Method 05/25/24 18:30 Temperature Pulse Rate Respiratory Rate Blood Pressure 136/88 Pulse Oximetry Oxygen Delivery Method MDM - Extremity (Nontraumatic) <Shaw Catherine, DO - Last Filed: 05/26/24 07:04> Lab Data 05/25/24 15:23 05/25/24 15:23 Labs: Lab Results 05/25/24 05/25/24 Range/Units 15:23 18:00 WBC 5.7 (4.5-11.0) X10^3/uL RBC 3.62 L (4.5-5.9) X10^6/uL Hgb 11.2 L (13.5-17.5) g/dL Hct 32.7 L (41-53) % MCV 90.5 (80-100) fL MCH 30.8 (26-34) PG MCHC 34.1 (30-36) % RDW 14.2 (11.6-14.8) % Plt Count 321 (150-400) X10^3/uL Neut % (Auto) 75.5 H (50-75) % Lymph % (Auto) 12.1 L (25-40) % [place] % (Auto) 9.3 (3-14) % Eos % (Auto) 2.0 (2-4) % Baso % (Auto) 1.1 (0-2) % Neut # (Auto) 4300 (8111-4404) /uL Lymph # (Auto) 700 L (7477-5006) /uL [place] # (Auto) 500 (0-900) /uL Eos # (Auto) 100 (0-450) /uL Baso # (Auto) 100 (0-100) /uL PT 12.0 (9.4-12.5) SECONDS INR 1.0 (0.9-1.3) APTT 37 H (25.1-36.5) SECONDS Sodium 133 L (137-145) mmol/L Potassium 4.3 (3.4-5.1) mmol/L Chloride 100 (98-107) mmol/L Carbon Dioxide 26 (22-32) mmol/L BUN 14 (9-20) mg/dL Creatinine 0.48 L (0.66-1.25) mg/dL Estimated GFR > 60 (>60) mL/min BUN/Creatinine Ratio 29.2 H (6-22) Glucose 488 H* D (70-100) mg/dL Lactate 2.1 (0.7-2.1) mmol/L Calcium 8.3 L (8.4-10.2) mg/dL Total Bilirubin 0.6 (0.2-1.3) mg/dL AST 82 H (17-59) IU/L ALT 140 H (<50) IU/L Alkaline Phosphatase 210 H (38-126) U/L Total Creatine Kinase 49 L (55-170) U/L Troponin I < 0.012 (0.01-0.034) ng/mL NT-Pro-B Natriuret Pep 200 H (<125) pg/mL Total Protein 6.8 (6.3-8.2) g/dL Albumin 3.5 (3.5-5.0) g/dL Globulin 3.3 (1.7-4.1) g/dL Albumin/Globulin Ratio 1.1 (1.0-2.8) Lipase 60 D (23-300) U/L Procalcitonin 0.780 H (<0.5) ng/mL Urine RBC None seen (0-5/HPF) Urine WBC None seen (0-5/HPF) Ur Squamous Epith Cells None seen (0-5/HPF) Urine Bacteria None seen (None) Ur Culture Indicated? Cult not indicated Vol Urine Centrifuged 10ml (spun) Point of Care Testing Glucose POC 388 Urine Dip Bedside Urine Glucose 500 mg/dl Bedside Urine Bilirubin - Negative Bedside Urine Ketone - Negative Urine Specific [place] 1.015 Bedside Urine Occult Blood ++ Bedside Urine pH 7.0 Bedside Urine Protein - Negative Bedside Urine Urobilinogen - Negative Bedside Urine Nitrite - Negative Bedside Urine Leukocytes - Negative Esterase Imaging Data Chest x-ray: Radiologist's Impression: PROCEDURE: XR CHEST 1V INDICATIONS: suspected sepsis TECHNIQUE: One view of the chest was acquired. COMPARISON: None. FINDINGS: Surgical changes and devices: None. Lungs and pleura: Lungs are clear. No pleural effusions or pneumothorax. Mediastinum: Mediastinal contours appear normal. Heart size is normal. Bones and chest wall: No suspicious bony lesions. Overlying soft tissues appear unremarkable. IMPRESSION: No acute cardiopulmonary abnormality is seen. ECG Data Attestation EKG: I personally reviewed and interpreted this ECG as follows: Interpretation: Sinus rhythm Ventricular rate of 86 Normal axis Normal QRS Normal QTC No ST T wave changes MDM Narrative Medical decision making narrative: Hyperglycemic but patient is a known diabetic is afebrile. Does have bilateral lower extremity swelling in the setting of recent hospitalization so DVT ultrasounds were ordered. His exam is not consistent with cellulitis. Low suspicion that he was septic. He has never had swelling in the past. Labs were ordered. Was given Lasix. He was not short of breath. Care turned over to Dr. Daigle to follow-up on ultrasound. Anticipate discharged with home Lasix. <Melina Daigle MD - Last Filed: 05/26/24 05:36> Lab Data Labs: Lab Results 05/25/24 05/25/24 Range/Units 15:23 18:00 WBC 5.7 (4.5-11.0) X10^3/uL RBC 3.62 L (4.5-5.9) X10^6/uL Hgb 11.2 L (13.5-17.5) g/dL Hct 32.7 L (41-53) % MCV 90.5 (80-100) fL MCH 30.8 (26-34) PG MCHC 34.1 (30-36) % RDW 14.2 (11.6-14.8) % Plt Count 321 (150-400) X10^3/uL Neut % (Auto) 75.5 H (50-75) % Lymph % (Auto) 12.1 L (25-40) % [place] % (Auto) 9.3 (3-14) % Eos % (Auto) 2.0 (2-4) % Baso % (Auto) 1.1 (0-2) % Neut # (Auto) 4300 (8162-7626) /uL Lymph # (Auto) 700 L (1990-3206) /uL [place] # (Auto) 500 (0-900) /uL Eos # (Auto) 100 (0-450) /uL Baso # (Auto) 100 (0-100) /uL PT 12.0 (9.4-12.5) SECONDS INR 1.0 (0.9-1.3) APTT 37 H (25.1-36.5) SECONDS Sodium 133 L (137-145) mmol/L Potassium 4.3 (3.4-5.1) mmol/L Chloride 100 (98-107) mmol/L Carbon Dioxide 26 (22-32) mmol/L BUN 14 (9-20) mg/dL Creatinine 0.48 L (0.66-1.25) mg/dL Estimated GFR > 60 (>60) mL/min BUN/Creatinine Ratio 29.2 H (6-22) Glucose 488 H* D (70-100) mg/dL Lactate 2.1 (0.7-2.1) mmol/L Calcium 8.3 L (8.4-10.2) mg/dL Total Bilirubin 0.6 (0.2-1.3) mg/dL AST 82 H (17-59) IU/L ALT 140 H (<50) IU/L Alkaline Phosphatase 210 H (38-126) U/L Total Creatine Kinase 49 L (55-170) U/L Troponin I < 0.012 (0.01-0.034) ng/mL NT-Pro-B Natriuret Pep 200 H (<125) pg/mL Total Protein 6.8 (6.3-8.2) g/dL Albumin 3.5 (3.5-5.0) g/dL Globulin 3.3 (1.7-4.1) g/dL Albumin/Globulin Ratio 1.1 (1.0-2.8) Lipase 60 D (23-300) U/L Procalcitonin 0.780 H (<0.5) ng/mL Urine RBC None seen (0-5/HPF) Urine WBC None seen (0-5/HPF) Ur Squamous Epith Cells None seen (0-5/HPF) Urine Bacteria None seen (None) Ur Culture Indicated? Cult not indicated Vol Urine Centrifuged 10ml (spun) Point of Care Testing Glucose POC 388 Urine Dip Bedside Urine Glucose 500 mg/dl Bedside Urine Bilirubin - Negative Bedside Urine Ketone - Negative Urine Specific [place] 1.015 Bedside Urine Occult Blood ++ Bedside Urine pH 7.0 Bedside Urine Protein - Negative Bedside Urine Urobilinogen - Negative Bedside Urine Nitrite - Negative Bedside Urine Leukocytes - Negative Esterase MDM Narrative Medical decision making narrative: Hyperglycemic but patient is a known diabetic is afebrile. Does have bilateral lower extremity swelling in the setting of recent hospitalization so DVT ultrasounds were ordered. His exam is not consistent with cellulitis. Low suspicion that he was septic. He has never had swelling in the past. Labs were ordered. Was given Lasix. He was not short of breath. Care turned over to Dr. Daigle to follow-up on ultrasound. Anticipate discharged with home Lasix. Dr. Daigle -laboratory work and imaging reviewed. Patient given insulin and small bolus of IV fluids for his hyperglycemia. Ultrasound of lower extremities negative. Patient informed of lab and imaging results as well as anticipated discharge home. Patient asked if we could help him get home. I recommended cab service, but patient stated that he did not have any money. I explained that we do not have cab voucher hours available to handout to patient's and he became upset and decided to leave prior to receiving any other medications. Discharge Plan Departure Patient Disposition: Home Clinical Impression: Bilateral lower extremity edema Instructions: DI for Peripheral Edema -- Bilateral Activity Restrictions/Additional Instructions: You had high blood sugars today, make sure you take your insulin at home. You did not have any blood clots in your legs. Water pills has been sent to the pharmacy. Please take them and follow up with the primary care doctor. Prescriptions: New furosemide 20 mg tablet 20 mg PO BID Qty: 20 0RF No Action omeprazole 40 mg capsule,delayed release(DR/EC) 40 mg PO DAILY bupropion HCl 100 mg tablet 100 mg PO BID buspirone 10 mg tablet 10 mg PO BID gabapentin 300 mg capsule 300 mg PO BID lisinopril 5 mg tablet 5 mg PO DAILY albuterol sulfate 90 mcg/actuation HFA aerosol inhaler 1 puff inhalation PRN MDD 5 PRN (Reason: Shortness Of Breath Or Wheezing) insulin aspart U-100 [Novolog FlexPen U-100 Insulin] 100 unit/mL (3 mL) insulin pen 1 sliding scale dose SUBCUT ACHS Patient Comments: [NO ORIGINAL SIG] Levemir FlexPen 100 unit/mL (3 mL) insulin pen 20 unit SUBCUT BID Patient Comments: [NO ORIGINAL SIG] cetirizine 10 mg tablet 10 mg PO DAILY phenazopyridine 100 mg tablet 200 mg PO 3XD oxycodone-acetaminophen [Percocet] 5-325 mg tablet 1 tab PO Q8H PRN (Reason: pain) Qty: 20 0RF ciprofloxacin HCl [Cipro] 500 mg tablet 500 mg PO BID Qty: 30 0RF Referrals: Miscellaneous,Doctor, MD [Primary Care Provider] - Stand Alone Forms: Patient Portal/API
[2024-05-25 15:51] LABS: Alanine Aminotransferase 140 IU/L (<50); Albumin 3.5 g/dL (3.5-5.0); Albumin Globulin Ratio 1.1 (1.0-2.8); Alkaline Phosphatase 210 U/L (38-126); Aspartate Aminotransferase 82 IU/L (17-59); BUN Creatinine Ratio 29.2 (6-22); Bilirubin Total 0.6 mg/dL (0.2-1.3); Blood Urea Nitrogen 14 mg/dL (9-20); Calcium 8.3 mg/dL (8.4-10.2); Carbon Dioxide 26 mmol/L (22-32); Chloride 100 mmol/L (98-107); Estimated Glomerular Filt Rate > 60 mL/min (>60); Globulin 3.3 g/dL (1.7-4.1); HEMOLYSIS < 15 (0-50); Lipase 60 U/L (23-300); Potassium 4.3 mmol/L (3.4-5.1); Sodium 133 mmol/L (137-145); Total Protein 6.8 g/dL (6.3-8.2)
--- NOTE | 2024-05-25 15:51 | DI.US.S_ITS ---
PROCEDURE: US PERIPH VENOUS LOW EXTREM LT INDICATIONS: Eval for DVT TECHNIQUE: Real-time imaging, as well as color and pulse Doppler interrogation, were performed of the lower extremity deep veins from the inguinal ligament to the popliteal fossa, with documentation of the visualized calf veins. COMPARISON: None. FINDINGS: The common femoral, femoral, popliteal, and the visualized calf veins are normally compressible, and free of intraluminal thrombus. Color and pulse Doppler demonstrate normal phasic intraluminal flow. There is normal augmentation response to distal compression maneuver. Edema in the calf. IMPRESSION: No findings of lower extremity deep venous thrombosis. Dictated by: Rey Noble M.D. on 05/25/2024 at 18:18 Approved by: Rey Noble M.D. on 05/25/2024 at 18:18
--- NOTE | 2024-05-25 15:51 | DI.US.S_ITS ---
PROCEDURE: US PERIPH VENOUS LOW EXTREM RT INDICATIONS: Eval for DVT TECHNIQUE: Real-time imaging, as well as color and pulse Doppler interrogation, were performed of the lower extremity deep veins from the inguinal ligament to the popliteal fossa, with documentation of the visualized calf veins. COMPARISON: None. FINDINGS: The common femoral, femoral, popliteal, and the visualized calf veins are normally compressible, and free of intraluminal thrombus. Color and pulse Doppler demonstrate normal phasic intraluminal flow. There is normal augmentation response to distal compression maneuver. Edema within the calf. IMPRESSION: No findings of lower extremity deep venous thrombosis. Dictated by: Rey Noble M.D. on 05/25/2024 at 18:17 Approved by: Rey Noble M.D. on 05/25/2024 at 18:18
[2024-05-25 16:03] LABS: NT-proBNP (BNP-Adult 18+) 200 pg/mL (<125); Troponin I < 0.012 ng/mL (0.01-0.034)
[2024-05-25 16:06] LABS: Glucose 488 mg/dL (70-100)
[2024-05-25] MEDS: FUROSEMIDE 60 MG in SODIUM CHLORIDE 0.9% 50 ML 112 MG IV (16:15)
[2024-05-25 17:08] LABS: Reflexed Lactate in 2 Hours Y
[2024-05-25] MEDS: SODIUM CHLORIDE 0.9% 1,000 ML 1000 ML IV (18:29)
[2024-05-25] MEDS: INSULIN REGULAR 100 UNIT/ML 3 ML VIAL 10 UNIT IV (18:30)
[2024-05-25 18:34] LABS: Bacteria Urine None Seen; Culture Indicated Urine Cult Not Indicated; RBC Urine None Seen (0-5/HPF); Squamous Epithelial Cell Urine None Seen (0-5/HPF); Urine Volume 10mL (spun); WBC Urine None Seen (0-5/HPF)
== END 2024-05-25 18:52 | disposition home or self-care (01) ==
PROVIDERS: Emergency Provider Emergency Medicine
DX: R60.0 Localized edema (principal); R79.89 Other specified abnormal findings of blood chemistry; Z79.899 Other long term (current) drug therapy
CPT/HCPCS: 36415; 71045; 80053; 81003; 81015; 82550; 82962; 83605; 83690; 83880; 84145; 84484; 85025; 85610; 85730; 87040; 93005; 93971; 96365; 96375; 99284; J1940

== ENCOUNTER 2025-02-13 23:05 | Emergency (ER) | payer OTHER, SELFPAY ==
[2024-05-18 03:50] VITALS: BMI 24.3
[2025-02-13 23:11] VITALS: BP 157/99; PULSE 128; RESP 20; TEMP 36.8; O2SAT 98; BMI 25.1
--- NOTE | 2025-02-13 23:41 | EKG_ITS ---
[address] [address] Test Date: 2025-02-14 Pat Name: Myles Segovia Department: [facility] Room: Gender: Male Product Mgr: AZALEA : 1965 Requested By: Order Number: [id number] Reading MD: Tobin Bansal Measurements Intervals [place] Rate: 84 P: 52 [place]: 142 QRS: 5 QRSD: 136 T: 49 QT: 396 QTc: 467 Interpretive Statements Poor data quality, interpretation may be adversely affected Normal sinus rhythm Right bundle branch block Electronically Signed On 02-20-2025 20:07:35 PDT by Tobin Bansal
--- NOTE | 2025-02-13 23:41 | DI.RAD.S_ITS ---
PROCEDURE: XR CHEST 1V INDICATIONS: suspected sepsis TECHNIQUE: One view of the chest was acquired. COMPARISON: [facility], CR, XR CHEST 1V, 05/25/2024, 15:28. FINDINGS: Surgical changes and devices: None. Lungs and pleura: Lungs are clear. No pleural effusions or pneumothorax. Mediastinum: Mediastinal contours appear normal. Heart size is normal. Bones and chest wall: No suspicious bony lesions. Overlying soft tissues appear unremarkable. IMPRESSION: No acute pulmonary process. Dictated by: Argenis Levy M.D. on 02/14/2025 at 0:24 Approved by: Argenis Levy M.D. on 02/14/2025 at 0:24
[2025-02-14] VITALS (8 sets, daily range): BP systolic 145–151; BP diastolic 87–90; PULSE 75–107; RESP 15–18; O2SAT 97–98
[2025-02-14 00:17] LABS: Add Manual Diff / Slide Review NO; Basophils Absolute Auto 100 /uL (0-100); Basophils Percent Auto 1.1 % (0-2); Eosinophils Absolute Auto 100 /uL (0-450); Eosinophils Percent Auto 1.4 % (2-4); Hematocrit 39.6 % (41-53); Hemoglobin 13.4 g/dL (13.5-17.5); Lymphocytes Absolute Auto 500 /uL (1100-4500); Mean Corpuscular HGB Conc 33.9 % (30-36); Mean Corpuscular Hemoglobin 29.5 PG (26-34); Mean Corpuscular Volume 87.2 fL (80-100); Monocytes Absolute Auto 500 /uL (0-900); Monocytes Percent Auto 9.8 % (3-14); Neutrophils Absolute Auto 4100 /uL (1500-7000); Neutrophils Percent Auto 78.7 % (50-75); Platelet Count 233 X10^3/uL (150-400); Red Blood Cell Count 4.54 X10^6/uL (4.5-5.9); Red Cell Distribution Width 13.6 % (11.6-14.8); White Blood Cell Count 5.2 X10^3/uL (4.5-11.0)
[2025-02-14] MEDS: SODIUM CHLORIDE 0.9% 1,000 ML 1000 ML IV (00:22)
[2025-02-14 00:27] LABS: INR 1.1 (0.9-1.3); Prothrombin Time 12.7 SECONDS (9.4-12.5)
--- NOTE | 2025-02-14 00:28 | ED_ITS ---
HPI - Skin/Abscess/Foreign Bdy General Chief complaint: Skin/Abscess/Foreign Body Stated complaint: something on stomach burst, bleeding Time Seen by Provider: 02/14/25 00:28 Source: patient Mode of arrival: Ambulatory Limitations: no limitations History of Present Illness HPI narrative: 59-year-old male past medical history of hypertension, diabetes, comes into the ED from home for evaluation of right groin swelling pain redness. He states that this has been ongoing intermittent for the past month and a half, he states that he yesterday he felt like it started to burst and bleed, he states that he has had this checked out a few weeks ago at an outside hospital had a biopsy and told him it was not cancerous. He denies any other symptoms at this time. He does state that he has a history of smoking meth, states last time he did this was a proximally 1 week ago. States that he has not done IV drugs in ?a long time. Patient is not complaining of any other symptoms such as headache visual disturbances chest pain shortness of breath fever chills nausea vomiting or any other GI/ symptoms time. Related Data Home Medications Medication Instructions Recorded Confirmed albuterol sulfate 90 mcg/actuation 1 puff inhalation PRN PRN 05/18/24 05/18/24 aerosol inhaler Shortness Of Breath Or Wheezing bupropion HCl 100 mg tablet 100 mg PO BID 05/18/24 05/18/24 buspirone 10 mg tablet 10 mg PO BID 05/18/24 05/18/24 cetirizine 10 mg tablet 10 mg PO DAILY 05/18/24 05/18/24 gabapentin 300 mg capsule 300 mg PO BID 05/18/24 05/18/24 insulin aspart U-100 100 unit/mL 1 sliding scale dose SUBCUT ACHS 05/18/24 05/18/24 (3 mL) subcutaneous pen (Novolog FlexPen U-100 Insulin aspart) insulin detemir U-100 100 unit/mL 20 unit SUBCUT BID 05/18/24 05/18/24 (3 mL) subcutaneous pen (Levemir FlexPen) lisinopril 5 mg tablet 5 mg PO DAILY 05/18/24 05/18/24 omeprazole 40 mg capsule,delayed 40 mg PO DAILY 05/18/24 05/18/24 release phenazopyridine 100 mg tablet 200 mg PO 3XD Pain 05/18/24 05/19/24 Previous Rx's Medication Instructions Recorded ciprofloxacin HCl 500 mg tablet 500 mg PO BID #30 tabs 05/22/24 (Cipro) oxycodone-acetaminophen 5 mg-325 1 tab PO Q8H PRN pain #20 tabs 05/22/24 mg tablet (Percocet) furosemide 20 mg tablet 20 mg PO BID #20 tabs 05/25/24 doxycycline hyclate 100 mg capsule 100 mg PO BID 1 week #14 caps 02/14/25 metronidazole 500 mg tablet 500 mg PO Q6H 1 week #28 tabs 02/14/25 Allergies Allergy/AdvReac Type Severity Reaction Status Date / Time codeine Allergy Verified 05/25/24 15:03 Review of Systems Review of Systems Narrative: General: Denies fever, chills, weight loss HEENT: Denies headache, eye drainage, eye irritation, head trauma, sore throat, voice change Cardiovascular: Denies any chest pain, palpitations, tachycardia Respiratory: Denies any shortness of breath, cough, wheeze, stridor GI/: Denies any abdominal pain, nausea, vomiting, diarrhea, bright red blood per rectum, melanotic stools, urinary frequency, urinary retention, dysuria, hematuria MSK: Denies any joint pain, muscle pains, swelling Skin: Abscess/wound to right groin, Denies any rashes, lesions, discoloration Neuro: Denies any headache, lightheadedness, dizziness, fainting, weakness Psych: Denies SI/HI Patient History Medical History Hepatitis C Perineal pain in male Methamphetamine use Dysuria Social History Smoking Status: Never smoker alcohol intake: former Smoking Status: Never smoker alcohol intake frequency: other Exam Narrative Exam Narrative: General: Cooperative, well-developed, not in acute distress HEENT: Normocephalic, atraumatic, PERRLA, normal sclera, eyelids normal Neck: Active full range of motion, atraumatic Chest: Normal to inspection, negative crepitus, no overlying erythema ecchymosis Respiratory: Normal respiratory effort, not in acute respiratory distress, clear to auscultation bilaterally negative cough, wheeze, tachypnea, rhonchi, rales Cardiology: Regular rate rhythm negative gallop, murmur, rubs GI/: No tenderness to palpation, soft, non rigid, normal to inspection, exam: There is no erythema crepitus or discoloration of the scrotal region itself MSK: Full active range of motion in all 4 extremities, atraumatic, no tenderness to palpation of any bony prominences Skin: 2 x 2 cm tender indurated area in the right groin, overlying erythema, but no crepitus or streaking, Neuro: Alert awake oriented x3, moves all 4 extremities spontaneously, cranial nerves intact, able to answer all questions appropriately follows commands appropriately Psych: Cooperative, negative suicidal or homicidal ideations Initial Vital Signs Initial Vital Signs: Vital Signs Temperature 98.2 F 02/13/25 23:11 Pulse Rate 128 H 02/13/25 23:11 Respiratory Rate 20 02/13/25 23:11 Blood Pressure 157/99 H 02/13/25 23:11 Pulse Oximetry 98 02/13/25 23:11 Oxygen Delivery Method Room Air 02/13/25 23:11 Course Orders Ordered: ED Orders 02/13/25 23:41 XR chest 1V Stat Blood Culture Stat Complete Blood Count AUTO DIFF Stat Comprehensive Metabolic Panel Stat Lactate (Lactic Acid) Stat Lipase Stat PTT Partial Thromboplastin Fox Stat Procalcitonin Stat Prothrombin Time INR Stat EKG-12 Lead Stat RT Consult Eval and Treat NOW 02/14/25 00:05 MAG [Magnesium] Stat 02/14/25 00:31 CT abdomen pelvis w con Stat 02/14/25 00:36 VBG [Venous Blood Gas] STAT 02/14/25 01:16 Venous Blood Gas Routine Vancomycin HCl/Dextrose (Vancomycin) 2,000 mg in 400 mls @ 200 mls/hr IV NOW ONE Stop: 02/14/25 02:31 Last Admin: 02/14/25 00:36 Dose: 200 mls/hr Documented By: Ondansetron HCl (Ondansetron 4 Mg/2 Ml Inj) 4 mg IV NOW PRN PRN Reason: Nausea And Vomiting Ondansetron HCl (Ondansetron 4 Mg Odt) 4 mg SL NOW PRN PRN Reason: Nausea And Vomiting Discontinued Medications Diphenhydramine HCl (Diphenhydramine 50 Mg/Ml Vial) 25 mg IV NOW ONE Stop: 02/14/25 01:30 Sodium Chloride (Normal Saline 0.9%) 1,000 mls @ 1,000 mls/hr IV BOLUS ONE Stop: 02/14/25 00:40 Last Infusion: 02/14/25 01:22 Dose: Infused Documented By: Admin: 02/14/25 00:22 Dose: 1,000 mls/hr Documented By: Morphine Sulfate (Morphine 4 Mg/Ml Inj) 4 mg IV NOW ONE Stop: 02/14/25 00:31 Last Admin: 02/14/25 00:36 Dose: 4 mg Documented By: Vital Signs Vital signs: Vital Signs - 8 hr 02/13/25 23:11 Temperature 98.2 F Pulse Rate 128 H Respiratory Rate 20 Blood Pressure 157/99 H Pulse Oximetry 98 Oxygen Delivery Method Room Air MDM - Skin/Abscess/Foreign Bdy Differential Diagnosis Differential diagnosis: Likely abscess of skin or subcutaneous tissue, cellulitis and other (Electrolyte abnormality,) Lab Data 02/14/25 00:05 02/14/25 00:05 Labs: Lab Results 02/14/25 02/14/25 Range/Units 00:05 01:16 WBC 5.2 (4.5-11.0) X10^3/uL RBC 4.54 (4.5-5.9) X10^6/uL Hgb 13.4 L (13.5-17.5) g/dL Hct 39.6 L (41-53) % MCV 87.2 (80-100) fL MCH 29.5 (26-34) PG MCHC 33.9 (30-36) % RDW 13.6 (11.6-14.8) % Plt Count 233 (150-400) X10^3/uL Neut % (Auto) 78.7 H (50-75) % Lymph % (Auto) 9.0 L (25-40) % George % (Auto) 9.8 (3-14) % Eos % (Auto) 1.4 L (2-4) % Baso % (Auto) 1.1 (0-2) % Neut # (Auto) 4100 (1170-8058) /uL Lymph # (Auto) 500 L (2034-7022) /uL George # (Auto) 500 (0-900) /uL Eos # (Auto) 100 (0-450) /uL Baso # (Auto) 100 (0-100) /uL PT 12.7 H (9.4-12.5) SECONDS INR 1.1 (0.9-1.3) APTT 36 (25.1-36.5) SECONDS VBG pH 7.43 (7.33-7.43) VBG pCO2 42.8 L (45-50) mmHg VBG pO2 63 H (35-45) mmHg VBG HCO3 28 (24-28) mmol/L VBG Total CO2 27 (24-29) mmol/L VBG O2 Saturation 92 H (70-75) % VBG Base Excess 3.2 (0-4) mmol/L Sodium 134 L (137-145) mmol/L Potassium 4.0 (3.4-5.1) mmol/L Chloride 98 (98-107) mmol/L Carbon Dioxide 28 (22-32) mmol/L BUN 14 (9-20) mg/dL Creatinine 0.53 L (0.66-1.25) mg/dL Estimated GFR > 60 (>60) mL/min BUN/Creatinine Ratio 26.4 H (6-22) Glucose 400 H (70-100) mg/dL Lactate 1.3 (0.7-2.1) mmol/L Calcium 9.0 (8.4-10.2) mg/dL Magnesium 1.7 (1.6-2.3) mg/dL Total Bilirubin 0.5 (0.2-1.3) mg/dL AST 71 H (17-59) IU/L ALT 110 H (<50) IU/L Alkaline Phosphatase 149 H (38-126) U/L Total Protein 7.7 (6.3-8.2) g/dL Albumin 3.8 (3.5-5.0) g/dL Globulin 3.9 (1.7-4.1) g/dL Albumin/Globulin Ratio 1.0 (1.0-2.8) Lipase 20 L (23-300) U/L Procalcitonin 0.090 (<0.5) ng/mL Imaging Data CT scan - abdomen/pelvis: Radiologist's Impression: [address] [address] [address] Scan Report Signed Patient: Myles Segovia MR#: [id number] : 1965 Acct:[id number] Age/Sex: 59 / M Date of Service: 02/14/25 Loc: ED Accession Number: [id number] Procedure: CT abdomen pelvis w con Ordering Provider: Tobin Freeman D.O. PROCEDURE: CT ABDOMEN PELVIS W CON INDICATIONS: Swelling/ abscess to right groin TECHNIQUE: After the administration of intravenous contrast, axial sections acquired from the lung bases to the pubic symphysis. Coronal and sagittal reformats were performed. For radiation dose reduction, the following was used: automated exposure control, adjustment of mA and/or kV according to patient size. COMPARISON: [facility], CT, CT ABDOMEN PELVIS W CON, 05/18/2024, 0:52. FINDINGS: Image quality: Diagnostic. Lower Chest: No significant findings. ABDOMEN: Liver: Simple cysts. Steatosis. Gallbladder: No radiopaque gallstones or wall thickening. Biliary ducts: No biliary dilation. Pancreas: No ductal dilation. Spleen: Low-attenuation Adrenal Glands: No adrenal nodules. Kidneys and Ureters: No hydronephrosis. No solid mass. No complex renal cystic lesion which requires follow up. Stomach and Bowel: Normal colonic caliber, without significant wall thickening. Colonic stool without obstruction. Peritoneum: No abnormal intraperitoneal fluid. No free air. Ventral Wall: No significant ventral hernia. Abdominal Nodes: No retroperitoneal or mesenteric adenopathy by size criteria. Vessels: Aorta and inferior vena cava are normal in size. PELVIS: Pelvic Organs: Unremarkable. Bladder: No bladder wall thickening, accounting for underdistention. Pelvic Nodes: No enlarged lymph nodes. Miscellaneous: Bilateral fat containing inguinal hernias are seen. There is focal thickening and inflammatory change with fluid measuring 2.7 x 2.4 cm in the right groin. Testicular hydroceles are present unchanged compared to exam. Bones: No aggressive osseous abnormality. IMPRESSION: Right groin inflammatory change with fluid suggestive of phlegmon/developing. ECG Data Interpretation: EKG interpreted ED physician sinus 84 beats per minute QTC 467 right bundle branch block noted, normal axis nonspecific ST changes no STEMI MDM Narrative Medical decision making narrative: 59-year-old male with a history of diabetes hypertension drug abuse presents for right groin swelling pain redness abscess, states it has been ongoing persistent for the past 1-1/2 months, states it got worse yesterday felt like something burst, states foul-smelling discharge, on exam 2 x 2 cm indurated mass noted to the right inguinal region not affecting the scrotal region, no streaking no crepitus noted on exam, patient afebrile, no leukocytosis, Chem panel does show patient with a glucose of 400, however patient not in diabetic ketoacidosis per his VBG. CT scan showing inflammatory changes with fluid measuring 2.7 x 2.4 cm in the right groin suggestive of possible developing phlegmon. Did discuss case with Dr. Ambrose of General surgery, he recommends either needle aspiration and or incision and drainage, however patient adamantly refusing this procedure, he states that he has had history of requiring a needle aspiration/incision and drainage to in abscess to his buttock region prior and he states that he just can not ?tolerate any of this. I informed him that this possibly could lead to persistent or worsening symptoms, he states he understands but would rather just try the oral antibiotics and follow up with his primary care, he was given strict return precautions he verbalized understanding of this and agrees to being discharged home with outpatient follow up. Discharge Plan Departure Patient Disposition: Home Clinical Impression: Abscess or cellulitis of groin, Hyperglycemia Instructions: DI for Skin Abscess Activity Restrictions/Additional Instructions: Please follow up with your primary care doctor Please read the discharge instructions sheet carefully and bring all papers to all doctor follow-up visits, as it may contain information that your doctor may want to see. Disease processes change and evolve, if your symptoms worsen or if you develop any new symptoms that are concerning to you please return for evaluation. Your evaluation today does not show any evidence of any life- threatening/serious illnesses requiring admission to the hospital or surgery. Please follow-up with your doctor for re-evaluation in approximately 1 day. Seek immediate medical attention for any worrisome symptoms. *If you do not have a primary care provider please contact the [facility] Resource line at [phone]. They will ask some questions about your medical history and help get you set up with a doctor in the community. Prescriptions: New metronidazole 500 mg tablet 500 mg PO Q6H 7 Days Qty: 28 0RF doxycycline hyclate 100 mg capsule 100 mg PO BID 7 Days Qty: 14 0RF No Action furosemide 20 mg tablet 20 mg PO BID Qty: 20 0RF omeprazole 40 mg capsule,delayed release(DR/EC) 40 mg PO DAILY bupropion HCl 100 mg tablet 100 mg PO BID buspirone 10 mg tablet 10 mg PO BID gabapentin 300 mg capsule 300 mg PO BID lisinopril 5 mg tablet 5 mg PO DAILY albuterol sulfate 90 mcg/actuation HFA aerosol inhaler 1 puff inhalation PRN MDD 5 PRN (Reason: Shortness Of Breath Or Wheezing) insulin aspart U-100 [Novolog FlexPen U-100 Insulin] 100 unit/mL (3 mL) insulin pen 1 sliding scale dose SUBCUT ACHS Patient Comments: [NO ORIGINAL SIG] Levemir FlexPen 100 unit/mL (3 mL) insulin pen 20 unit SUBCUT BID Patient Comments: [NO ORIGINAL SIG] cetirizine 10 mg tablet 10 mg PO DAILY phenazopyridine 100 mg tablet 200 mg PO 3XD oxycodone-acetaminophen [Percocet] 5-325 mg tablet 1 tab PO Q8H PRN (Reason: pain) Qty: 20 0RF ciprofloxacin HCl [Cipro] 500 mg tablet 500 mg PO BID Qty: 30 0RF Referrals: Miscellaneous,Doctor, MD [Primary Care Provider] - Stand Alone Forms: Patient Portal/API/Survey
[2025-02-14 00:29] LABS: Lactate (Lactic Acid) 1.3 mmol/L (0.7-2.1); PTT Partial Thromboplastin Tim 36 SECONDS (25.1-36.5)
[2025-02-14 00:30] LABS: Alanine Aminotransferase 110 IU/L (<50); Albumin 3.8 g/dL (3.5-5.0); Alkaline Phosphatase 149 U/L (38-126); Aspartate Aminotransferase 71 IU/L (17-59); BUN Creatinine Ratio 26.4 (6-22); Bilirubin Total 0.5 mg/dL (0.2-1.3); Blood Urea Nitrogen 14 mg/dL (9-20); Carbon Dioxide 28 mmol/L (22-32); Chloride 98 mmol/L (98-107); Estimated Glomerular Filt Rate > 60 mL/min (>60); Globulin 3.9 g/dL (1.7-4.1); Glucose 400 mg/dL (70-100); HEMOLYSIS < 15 (0-50); Lipase 20 U/L (23-300); Sodium 134 mmol/L (137-145); Total Protein 7.7 g/dL (6.3-8.2)
--- NOTE | 2025-02-14 00:31 | DI.CT.S_ITS ---
PROCEDURE: CT ABDOMEN PELVIS W CON INDICATIONS: Swelling/ abscess to right groin TECHNIQUE: After the administration of intravenous contrast, axial sections acquired from the lung bases to the pubic symphysis. Coronal and sagittal reformats were performed. For radiation dose reduction, the following was used: automated exposure control, adjustment of mA and/or kV according to patient size. COMPARISON: [facility], CT, CT ABDOMEN PELVIS W CON, 05/18/2024, 0:52. FINDINGS: Image quality: Diagnostic. Lower Chest: No significant findings. ABDOMEN: Liver: Simple cysts. Steatosis. Gallbladder: No radiopaque gallstones or wall thickening. Biliary ducts: No biliary dilation. Pancreas: No ductal dilation. Spleen: Low-attenuation Adrenal Glands: No adrenal nodules. Kidneys and Ureters: No hydronephrosis. No solid mass. No complex renal cystic lesion which requires follow up. Stomach and Bowel: Normal colonic caliber, without significant wall thickening. Colonic stool without obstruction. Peritoneum: No abnormal intraperitoneal fluid. No free air. Ventral Wall: No significant ventral hernia. Abdominal Nodes: No retroperitoneal or mesenteric adenopathy by size criteria. Vessels: Aorta and inferior vena cava are normal in size. PELVIS: Pelvic Organs: Unremarkable. Bladder: No bladder wall thickening, accounting for underdistention. Pelvic Nodes: No enlarged lymph nodes. Miscellaneous: Bilateral fat containing inguinal hernias are seen. There is focal thickening and inflammatory change with fluid measuring 2.7 x 2.4 cm in the right groin. Testicular hydroceles are present unchanged compared to exam. Bones: No aggressive osseous abnormality. IMPRESSION: Right groin inflammatory change with fluid suggestive of phlegmon/developing. Dictated by: Argenis Levy M.D. on 02/14/2025 at 1:27 Approved by: Argenis Levy M.D. on 02/14/2025 at 1:38
[2025-02-14] MEDS: VANCOMYCIN 2,000 MG/400 ML PIGGYBACK 200 MG IV (00:36)
[2025-02-14] MEDS: MORPHINE 4 MG/ML INJ IV (00:36)
[2025-02-14 00:50] LABS: Magnesium 1.7 mg/dL (1.6-2.3)
[2025-02-14 01:25] LABS: Base Excess VBG 3.2 mmol/L (0-4); HCO3 VBG 28 mmol/L (24-28); Oxygen Saturation VBG 92 % (70-75); PCO2 VBG 42.8 mmHg (45-50); PO2 VBG 63 mmHg (35-45); Total CO2 VBG 27 mmol/L (24-29); pH VBG 7.43 (7.33-7.43)
[2025-02-14] MEDS: metroNIDAZOLE 500 MG TABLET PO (03:25)
== END 2025-02-14 03:34 | disposition home or self-care (01) ==
PROVIDERS: Emergency Provider Student in an Organized Health Care Education/Training Program
DX: L02.214 Cutaneous abscess of groin (principal); E11.65 Type 2 diabetes mellitus with hyperglycemia
CPT/HCPCS: 36415; 71045; 74177; 80053; 82805; 83605; 83690; 83735; 84145; 85025; 85610; 85730; 87040; 93005; 96365; 96375; 99284; J2270; Q9967

== ENCOUNTER 2025-07-31 11:35 | Emergency (ER) | payer OTHER, SELFPAY ==
[2024-05-18 03:50] VITALS: BMI 24.3
[2025-07-31 11:54] VITALS: BP 126/84; PULSE 98; RESP 18; TEMP 36.6; O2SAT 98; BMI 22.8
--- NOTE | 2025-07-31 12:03 | DI.RAD.S_ITS ---
PROCEDURE: XR WRIST LT MIN 3V INDICATIONS: fall 2 days ago; pain; also has a skin infx TECHNIQUE: 4 views of the wrist were acquired. COMPARISON: None. FINDINGS: Bones: Subtle radiolucency traversing distal portion of scaphoid body is seen. Osteoarthritic changes are noted throughout left hand and wrist joints. No suspicious bony lesions. Soft tissues: No suspicious soft tissue calcifications. Dorsal wrist soft tissue swelling. IMPRESSION: Left wrist joint osteoarthritis. Dorsal wrist soft tissue swelling. Subtle radiolucency involving distal portion of scaphoid which may represent a nutrient vessel versus subtle nondisplaced fracture in this area suggest clinical correlation for focal snuffbox tenderness. Dictated by: Ramon Kwan M.D. on 07/31/2025 at 12:48 Approved by: Ramon Kwan M.D. on 07/31/2025 at 12:49
--- NOTE | 2025-07-31 12:03 | DI.RAD.S_ITS ---
PROCEDURE: XR HAND LT MIN 3V INDICATIONS: fall 2 days ago; pain; also has a skin infx TECHNIQUE: 3 views of the hand(s) acquired. COMPARISON: None. FINDINGS: Bones: No fractures or dislocations. Osteoarthritic changes are noted throughout left hand and wrist joints. Radiolucencies are noted involving radial aspect of 2nd and 3rd metacarpal heads. Carpal bones are normally aligned. No suspicious bony lesions. Soft tissues: Significant dorsal soft tissue swelling. No suspicious soft tissue calcifications. IMPRESSION: Significant dorsal left hand soft tissue swelling. No acute fracture or dislocation. Mild left hand and wrist joint osteoarthritis. Radiolucencies involving radial aspect of 2nd and 3rd metacarpal heads which could represent subcortical cysts versus erosion secondary to inflammatory arthropathy suggest clinical correlation. Dictated by: Ramon Kwan M.D. on 07/31/2025 at 12:47 Approved by: Ramon Kwan M.D. on 07/31/2025 at 12:48
--- NOTE | 2025-07-31 12:04 | ED_ITS ---
<Statement entered by Tobin Freeman, - 07/31/25 13:54> Dr. Freeman: I was immediately available in the department for consultation. I did not actually see the patient. HPI - Extremity Injury (Upper) General Chief Complaint: Extremity Injury, Upper Stated Complaint: had a fall 2 days ago Left wrist/hand pain Time Seen by Provider: 07/31/25 12:03 Source: patient Mode of arrival: other History of Present Illness HPI narrative: Mr. Segovia is a very pleasant 59-year-old gentleman with a past medical history of polysubstance use currently at [facility], insulin-dependent type 2 diabetes, hypertension, GERD who presents to the emergency department from his detox facility for left wrist and hand pain after fall 2 days ago. Facility called ahead, provided history, patient is also able to give his own history. States that he was walking in the kitchen 2 days ago and tripped and fell forward hitting his left hand on the trash can. States that he has chronic issues with his right leg which lead to an unsteady gait. He is now having pain diffusely on the left wrist and the left hand with swelling. Patient also notes that he has had a scab/blister on the left wrist for some time now that recently had some drainage and scabbed over. Reports that today he was started on Suboxone so we his feeling a bit tired. Denies fevers, chills, nausea, vomiting, chest pain, abdominal pain, shortness of breath, neck pain, back pain, elbow pain, forearm pain. There was no head strike or LOC from the fall. Patient denies any other injury from the fall. Related Data Home Medications ?Medication ?Instructions ?Recorded ?Confirmed albuterol sulfate 90 mcg/actuation 1 puff inhalation P RN PRN 05/18/24 05/18/24 aerosol inhaler Shortness Of Breath Or Wheez ing bupropion HCl 100 mg tablet 100 mg PO BID 05/18/2410/01 buspirone 10 mg tablet 10 mg PO BID 05/18/24 cetirizine 10 mg tablet 10 mg PO DAILY 05/18/2405/08 gabapentin 300 mg capsule 300 mg PO BID 05/18/2405/18 insulin aspart U-100 100 unit/mL 1 sliding scale dose SUBCUT ACHS 05/18/24 05/18/24 (3 mL) subcutaneous pen (Novolog FlexPen U-100 Insulin aspart) insulin detemir U-100 100 unit/mL 20 unit SUBCUT BID 0 05/18/24 05/18/24 (3 mL) subcutaneous pen (Levemir FlexPen) lisinopril 5 mg tablet 5 mg PO DAILY 05/18/2405/18 omeprazole 40 mg capsule,delayed 40 mg PO DAILY 05/18/24 release phenazopyridine 100 mg tablet 200 mg PO 3XD Pain 05/1805/19/24 Previous Rx's ?Medication ?Instructions ?Recorded ciprofloxacin HCl 500 mg tablet 500 mg PO BID #30 tabs 05/22/24 (Cipro) oxycodone-acetaminophen 5 mg-325 1 tab PO Q8H PRN pain #20 tabs 05/22/24 mg tablet (Percocet) furosemide 20 mg tablet 20 mg PO BID #20 tabs doxycycline hyclate 100 mg capsule 100 mg PO BID 7 day s #14 caps 07/31/25 Allergies Allergy/AdvReac Type Severity Reaction Status Date / Time codeine Allergy Verified 07/31/25 12:03 Review of Systems Review of Systems ROS Unobtainable: All systems reviewed & are unremarkable except as noted in HPI and below Patient History Medical History Hepatitis C Perineal pain in male Methamphetamine use Dysuria Social History alcohol intake: former alcohol intake frequency: other Exam Narrative Exam Narrative: GENERAL: 59 year old patient appears older than stated age. Sitting in wheelchair, in no acute distress. HEAD: Atraumatic. Normocephalic. EYES: No scleral icterus. No injection or drainage. NECK: Trachea midline. Cervical ROM intact. No midline cervical tenderness. CARDIOVASCULAR: Regular rate and rhythm. RESPIRATORY: ?Nonlabored respirations. ?Speaking in clear, full sentences. ? EXTREMITIES: Edema of left wrist and hand. Tenderness of dorsal aspect of the left wrist and dorsal hand, nonfocal. Patient is able to flex and extend wrist but with discomfort, he is able to pronate and supinate. Patient has a scab on the radial aspect of the left wrist with surrounding erythema. No induration, fluctuance or drainage. No streaking erythema up the arm. 2+ radial pulses bilaterally and sensation intact to light touch in the distribution of the median, radial, ulnar nerves bilaterally. No proximal forearm tenderness or elbow tenderness. BACK: Nontender. NEURO: AOx3. ?Clear speech. ?Moves all 4 extremities appropriately. SKIN: Warm, dry. Left wrist scab and erythema described above. Initial Vital Signs Initial Vital Signs: Vital Signs Temperature 97.9 F 07/31/25 11:54 Pulse Rate 98 H 07/31/25 11:54 Respiratory Rate 18 07/31/25 11:54 Blood Pressure 126/84 07/31/25 11:54 Pulse Oximetry 98 07/31/25 11:54 Oxygen Delivery Method Room Air 07/31/25 11:54 Course Orders Ordered: ED Orders 07/31/25 12:03 XR hand LT min 3V Stat XR wrist LT min 3V Stat Discontinued Medications Bacitracin (Bacitracin Oint 0.9 Gm Pckt) 1 applic TOP NOW ONE Stop: 07/31/25 13:00 Doxycycline Hyclate (Doxycycline Hyclate 100 Mg Tablet) 100 mg PO NOW ONE Stop: 07/31/25 12:04 Last Admin: 07/31/25 12:21 Dose: 100 mg Vital Signs Vital signs: Vital Signs - 8 hr 07/31/25 11:54 07/31/25 13:07 Temperature 97.9 F 97.9 F Pulse Rate 98 H 90 Respiratory Rate 18 17 Blood Pressure 126/84 125/79 Pulse Oximetry 98 98 Oxygen Delivery Method Room Air Room Air [facility] - Extremity Injury (Upper) Medical Records Attestation: I reviewed the patient's medical records. [facility] Narrative Medical decision making narrative: 59-year-old gentleman with a past medical history of polysubstance use currently at [facility], insulin-dependent type 2 diabetes, hypertension, GERD who presents to the emergency department from his detox facility for left wrist and hand pain after fall 2 days ago. Differential diagnosis includes but is not limited to left wrist strain, sprain, contusion, fracture, dislocation, cellulitis, abscess, infection, etc. On exam patient is in no acute distress, nontoxic appearing, vital signs appropriate, heart rate is in 90s however he is currently undergoing detox and medical management. He is here for left wrist and hand pain after a FOOSH injury. Left hand is neurovascularly intact with no deformities. He does have a scab with some surrounding erythema on the left hand that has been present for multiple days/weeks. Given his history of drug use and signs concerning for cellulitis, we will cover with doxycycline. Left hand x-ray reveals dorsal left hand soft tissue swelling, no acute fracture dislocation, there is osteoarthritis. Wrist x-ray reveals osteoarthritis, dorsal soft tissue swelling, subtle radioluceny involving the distal portion of the scaphoid which may represent a nutrient vessel versus subtle nondisplaced fracture in this area suggest clinical correlation for focal snuffbox tenderness Printed and discussed imaging results with the patient. He does not have focal snuffbox tenderness, his pain is however diffuse over the left wrist and hand therefore we will treat conservatively with left wrist thumb spica splint. Discussed with the patient diagnosis of left wrist injury in addition to skin infection, antibiotic sent to detox facility pharmacy of choice, bacitracin and nonadherent dressing applied to left wrist scab below the velcro splint. Patient is neurovascularly intact both before and after application of splint. He verbalized understanding of all information agreeable with the plan. VS WNL, Left hand neurovascularly intact with splint in place. All questions answered, he is happy with the plan and He is stable for transport back to his facility. Discharge Plan Departure Patient Disposition: Home Clinical Impression: Acute pain of left wrist Fall Qualifiers: Encounter type: initial encounter Qualified Code(s): W19.XXXA - Unspecified fall, initial encounter Cellulitis Qualifiers: Site of cellulitis: extremity Site of cellulitis of extremity: upper extremity Laterality: left Qualified Code(s): L03.114 - Cellulitis of left upper limb Instructions: DI for Cellulitis -- Adult, DI for Wrist Fracture, DI for Wrist Sprain Activity Restrictions/Additional Instructions: Dear Mr. Segovia, Thank you for coming to the ER. Today you were evaluated for left wrist and hand pain after a fall. Your x-ray does not reveal any obvious broken bones, but X-ray does show a slight abnormality of the scaphoid bone which is a bone in your hand/wrist. This is a very important bone, so we have placed you into a thumb spica splint to keep this area supported. If you have persistent pain over the next 1-2 weeks, you need to follow up with [facility] for further evaluation of the left wrist injury. You also have a skin infection on the left wrist. Please complete the full course of doxycycline (antbiotics) to treat this infection. Once a day you can remove your splint to check on this infection and clean it with warm soapy water, pat dry, then cover it back up but this limp back on. Return to the ER immediately if you develop fevers, redness spreading up the arm, severe pain or any other concerns. Please follow up with your primary care doctor within the next 2-3 days for ER follow-up. (If you do not have a PCP you can call [phone]. ?to schedule an appointment with an [facility] Primary Care Provider) IF YOU DEVELOP ANY NEW OR WORSENING SYMPTOMS, RETURN TO THE ER! Please read the attached instructions, they highlight more specific treatments and interventions for you at home. Thank you for letting me participate in your care, Nilda Lora PA-C Prescriptions: New doxycycline hyclate 100 mg capsule 100 mg PO BID 7 Days Qty: 14 0RF No Action furosemide 20 mg tablet 20 mg PO BID Qty: 20 0RF omeprazole 40 mg capsule,delayed release(DR/EC) 40 mg PO DAILY bupropion HCl 100 mg tablet 100 mg PO BID buspirone 10 mg tablet 10 mg PO BID gabapentin 300 mg capsule 300 mg PO BID lisinopril 5 mg tablet 5 mg PO DAILY albuterol sulfate 90 mcg/actuation HFA aerosol inhaler 1 puff inhalation PRN MDD 5 PRN (Reason: Shortness Of Breath Or Wheezing) insulin aspart U-100 [Novolog FlexPen U-100 Insulin] 100 unit/mL (3 mL) insulin pen 1 sliding scale dose SUBCUT ACHS Patient Comments: [NO ORIGINAL SIG] Levemir FlexPen 100 unit/mL (3 mL) insulin pen 20 unit SUBCUT BID Patient Comments: [NO ORIGINAL SIG] cetirizine 10 mg tablet 10 mg PO DAILY phenazopyridine 100 mg tablet 200 mg PO 3XD oxycodone-acetaminophen [Percocet] 5-325 mg tablet 1 tab PO Q8H PRN (Reason: pain) Qty: 20 0RF ciprofloxacin HCl [Cipro] 500 mg tablet 500 mg PO BID Qty: 30 0RF Referrals: Miscellaneous,Doctor, [Primary Care Provider, Medical] Reem,Carley M, DO [Physician, Orthopedic Surgery] Referral Note: Left wrist Injury Stand Alone Forms: Patient Portal/API
[2025-07-31] MEDS: DOXYCYCLINE HYCLATE 100 MG TABLET PO (12:21)
--- NOTE | 2025-07-31 13:02 | PC.NURSE ---
Lexie Monroy will be here to pickup driver patient in approx 30min
[2025-07-31 13:07] VITALS: BP 125/79; PULSE 90; RESP 17; TEMP 36.6; O2SAT 98
== END 2025-07-31 13:18 | disposition home or self-care (01) ==
PROVIDERS: Emergency Provider Physician Assistant
DX: M25.532 Pain in left wrist (principal); L03.114 Cellulitis of left upper limb; W01.198A Fall on same level from slipping, tripping and stumbling with subsequent striking against other object, initial encounter
CPT/HCPCS: 29280; 73110; 73130; 99283